=== PATIENT | male | born 1970 ===

== ENCOUNTER 2020-07-10 13:14 | Outpatient (REF) | payer OTHER, SELFPAY ==
[2020-07-10 15:11] LABS: Glucose Urine UA NEG (NEG); Leukocyte Esterase Urine NEG (NEG); Nitrite Urine NEG (NEG); PH 7.5 (5.0-8.0); Urine Blood TRACE (NEG); Urine Ketones NEG (NEG); Urine Protein NEG (NEG-TRACE)
[2020-07-10 15:12] LABS: Appearance Urine CLEAR; Color Urine YELLOW
[2020-07-10 15:22] LABS: Bacteria Urine 1+ /LPF; RBC Urine 0-2 /HPF (0); WBC Urine 0 /HPF (0-4)
== END 2020-07-10 13:15 | disposition home or self-care (01) ==
LOC: HO.LAB 13:14
PROVIDERS: PCP Internal Medicine; Visit Provider Internal Medicine
DX: R35.0 Frequency of micturition (principal)
CPT/HCPCS: 81001; 81003

== ENCOUNTER 2020-09-11 18:17 | Emergency (ER) | payer OTHER, SELFPAY ==
[2020-09-11 18:50] VITALS: BP 121/82; PULSE 67; RESP 18; TEMP 36.7; O2SAT 98; BMI 27.3
[2020-09-11] MEDS: hydrOXYzine HCL 25 MG TABLET PO (20:46)
[2020-09-11] MEDS: predniSONE 20 MG TABLET 40 MG PO (20:46)
--- NOTE | 2020-09-11 23:56 | ED_ITS ---
HPI - General Adult General Chief complaint: General Medical Stated complaint: rash Time Seen by Provider: 09/11/20 19:15 Source: patient Limitations: no limitations History of Present Illness HPI narrative: this is a 49-year-old male who complains of a pruritic rash that he has had on his forearms bilaterally for about 3 weeks. He has few patches of raised erythematous skin that he attributed to poison rosa. He has been at applying calamine lotion as well as hydrocortisone cream without relief. Today he noted some itchy red areas in his right groin and left lower abdomen. He denies taking any medicines by mouth. He denies any tongue or lip or throat symptoms, denies shortness of breath. Related Data Previous Rx's Medication Instructions Recorded hydroxyzine HCl 25 - 50 mg PO QID PRN #30 tab 09/11/20 prednisone 40 mg PO DAILY 5 Days #10 tab 09/11/20 Allergies Allergy/AdvReac Type Severity Reaction Status Date / Time No Known Allergies Allergy Verified 09/11/20 18:50 Review of Systems Review of Systems: Yes all other systems are reviewed and are negative Constitutional: Constitutional: Reports as per HPI and Denies fever(s) Eyes: Eyes: Reports as per HPI and Reports no additional eye complaints ENT: Reports system reviewed and no additional complaints, except as documented, Reports as per HPI, Denies nasal congestion, Denies nasal discharge and Denies sore throat Cardiovascular: Cardiovascular: Reports as per HPI, Denies chest pain and Denies dyspnea Respiratory: Respiratory: Reports as per HPI, Denies cough and Denies dyspnea Gastrointestinal: Gastrointestinal: Reports as per HPI, Denies abdominal pain, Denies diarrhea and Denies vomiting Genitourinary: Genitourinary: Reports as per HPI, Denies hematuria, Denies dysuria and Denies urinary frequency Musculoskeletal: Musculoskeletal: Reports no additional musculoskeletal complaints and Denies numbness Integumentary/Breasts: Skin/Breast: Reports as per HPI and Reports rash Comments: Pruritus Neurologic: Reports as per HPI, Denies focal weakness, Denies numbness and Denies Sensory deficit (Neuro) Psychiatric: Psychiatric: Reports no additional psychiatric complaints and Reports as per HPI Endocrine: Endocrine: Reports no additional endocrine complaints and Reports as per HPI Hematologic/Lymphatic: Hematologic/Lymphatic: Reports no additional hematologic/lymphatic complaints, Reports as per HPI and Reports other (No peripheral edema) FOR[facility]LY [facility], [facility] Past Medical History Surgical History History of appendectomy Family History Family History (Updated 07/22/20 @ 11:06 by LUIS Ivey) Mother No problems noted. Social History Social History (Updated 07/22/20 @ 11:07 by LUIS Ivey) Alcohol intake: never Advance Directives: No Advance Directives Information Provided: No Physical Exam Vital Signs: Vital Signs: Last Vital Signs Temp 98.0 F 09/11/20 18:50 Pulse 67 09/11/20 18:50 Resp 18 09/11/20 18:50 BP 121/82 09/11/20 18:50 Pulse Ox 98 09/11/20 18:50 Body Mass Index 27.3 Const: General: cooperative, no acute distress and alert Orientation/consciousness: patient oriented x3 HENMT: Head: Yes normal to inspection Eyes: General: appearance normal, both eyes and all related structures Eyelids: Yes eyelids normal Conjunctivae: conjunctivae normal Pupils: Equal, round and reactive pupils present Neck: Neck: Yes normal visual inspection and Yes supple Chest: Chest palpation & inspection: normal inspection of the chest Resp: Effort & Inspection: normal respiratory effort Auscultation: clear to auscultation bilaterally Cardio: Rate: regular rate Rhythm: regular rhythm Heart sounds: S1 normal heart sound present, S2 normal heart sound present, no gallops, no murmurs and no rubs GI: Palpation (GI): Soft to palpation, nontender and Other GI palpation findings present (Non-distended) Auscultation: normal bowel sounds Skin: Other: raised erythematous area to volar wrist area, with a few satellite lesions nearby. Appearance is consistent with resolving contact dermatitis. Similar lesions on the patient's left wrist. Right groin and lower abdomen has few areas of patchy macular erythema. No generalized urticaria or erythroderma Neuro: General: patient oriented x3, no focal motor deficits and CN's II-XI intact bilaterally Cranial nerves: Yes Equal, round and reactive pupils present Cognition (Neuro): normal cognition Motor exam (neuro): 5/5 motor strength present throughout Sensory Exam: No Sensory deficit (Neuro) Extrem: General: Yes normal to inspection and Yes no pedal edema Psych: Appearance: grossly normal Affect: normal affect Medical Decision Making MDM Narrative Medical decision making narrative: will treat the patient with prednisone and hydroxyzine, to cover possible lingering contact dermatitis as well as nonspecific pruritic rash. Patient's overall well appearing and does not have any generalized rash Discharge Plan Discharge Clinical Impression: Contact dermatitis, Urticaria Patient Disposition: Home, Self-Care Instructions: Contact Dermatitis (ED), Urticaria (ED) Additional Instructions: take medications as prescribed. Make sure all of her clothes are washed with detergent to remove any remnants of poison rosa or other plant proteins. Return for any new or worsened symptoms Prescriptions: New prednisone 20 mg tablet 40 mg PO DAILY 5 Days Qty: 10 RF: 0 hydroxyzine HCl 25 mg tablet 25 - 50 mg PO QID PRN (Reason: itching) Qty: 30 RF: 0 Interventions: ED Discharge Assessment Last Done: 09/11/20 21:02 Discharge Date/Time: 09/11/20 21:03
== END 2020-09-11 21:03 | disposition home or self-care (01) ==
PROVIDERS: Emergency Provider Emergency Medicine
DX: L25.9 Unspecified contact dermatitis, unspecified cause (principal); L50.9 Urticaria, unspecified
CPT/HCPCS: 99283

== ENCOUNTER 2022-08-01 10:05 | Outpatient (REF) | payer OTHER, SELFPAY ==
--- NOTE | ~2022-08-01 | XR_ITS ---
EXAMINATION: XR LUMBOSACRAL SPINE CLINICAL INFORMATION: Low back pain. COMPARISON: None available. TECHNIQUE: Three views of the lumbosacral spine. FINDINGS: There are 5 lumbar-type nonrib-bearing vertebrae. Minimal leftward curvature of the lumbar spine is noted. Intervertebral disc spaces are preserved except for probable mild narrowing of the L5-S1 disc space. Minimal anterior endplate hypertrophic spurring is noted at L4-L5. No suspicious lytic or blastic osseous lesions. The posterior elements appear intact. Mild facet arthropathy at L5-S1. Limited evaluation of the sacroiliac joints and visualized hip joints is unremarkable. Paraspinous soft tissues are unremarkable. XR/XR lumbar spine 2-3V IMPRESSION: No evidence of acute compression fracture or suspicious osseous lesion. Mild lower lumbar spondylosis, greater at L5-S1.
== END 2022-08-01 10:06 | disposition home or self-care (01) ==
LOC: HO.XRAY 10:05
PROVIDERS: PCP Internal Medicine; Visit Provider Internal Medicine
DX: M54.9 Dorsalgia, unspecified (principal)
CPT/HCPCS: 72100

== ENCOUNTER 2022-08-12 12:56 | Outpatient (REF) | payer OTHER, SELFPAY ==
--- NOTE | ~2022-08-12 | US_ITS ---
EXAMINATION: US RETROPERITONEAL LIMITED (RENAL ONLY) CLINICAL INFORMATION: Flank pain. COMPARISON: None available. TECHNIQUE: Real-time imaging of the kidneys. FINDINGS: RIGHT KIDNEY: 10.8 x 4.9 x 5.6 cm (SAG x AP x TRV). The kidney is normal in size, contour, and echogenicity. Renal cortical thickness is normal. No calculi or focal parenchymal lesions. No hydronephrosis. LEFT KIDNEY: 12.2 x 5.4 x 5.0 cm (SAG x AP x TRV). The kidney is normal in size, contour, and echogenicity. Renal cortical thickness is normal. No calculi or focal parenchymal lesions. No hydronephrosis. US/US renal BI IMPRESSION: Unremarkable renal ultrasound.
== END 2022-08-12 12:57 | disposition home or self-care (01) ==
LOC: HO.US 12:56
PROVIDERS: PCP Internal Medicine; Visit Provider Internal Medicine
DX: R10.9 Unspecified abdominal pain (principal)
CPT/HCPCS: 76775

== ENCOUNTER 2022-09-16 10:43 | Outpatient (AMB) | payer OTHER, SELFPAY ==
--- NOTE | 2022-09-16 11:10 | A.OFFVIS_ITS ---
Intake Intake Visit Reasons: Renal Cyst Intake Note: Patient presents for Renal Cyst Urology Medications: none Blood thinners: none Multiple Spindle Screw Machine Operator Required: Yes Multiple Spindle Screw Machine Operator Name: TIFFANY Information Interpreted: clinical only Accompanied by: Unknown Allergies No Known Allergies Allergy (Verified 09/17/22 19:35) Medication List - Last Reconciled 09/17/22 by MARISABEL Escobar No Known Home Meds HPI HPI Comments History of Present Illness Details Travis is a pleasant 51-year-old Urdu-speaking male patient of Dr. Valdez. He presents to the office today as a new patient for a longstanding history of pyelonephritis. Patient reports over 3 years ago experiencing pyelonephritis for the first time and then again approximately 1 1/2 ago. He cu rrently denies any issues or concerns however discusses he would like to establish care with Urology for preventative measures. He discusses approximately 1-2 months ago experiencing bilateral flank/back pain that radiated to his abdomen and was worried that it could have been pyelonephritis. He reports pain has since subsided. In review of patient's chart it appears renal imaging has been ordered and obtain. These results were reviewed with the patient today. Bilateral kidneys with no calculi, lesions, and or hydronephrosis noted. Unremarkable renal ultrasound. In office urinalysis resu lts reviewed with the patient today. In discussion with the patient today he reports to be drinking pre workout drinks daily as he exercises daily at the gym. When asked he denies urinary urgency, urinary frequency, incontinence, nocturia, hematuria, dysuria, foul smelling urine, changes to urinary stream, flank pain, fever, and or chills. He is happy with his current voiding parameters. Discussed obtaining PSA for further assessment evaluation. UZAIR offered however deferred/declined. [facility]LY [facility], LAT[facility] Surgical History History of appendectomy Family History Mother No problems noted. Social History Housing: House Alcohol intake: never Patient Tobacco Use Status: Never used Tobacco e-Cigarette/Vaping Use: Never Used service: No Current occupational status: employed Review of Systems Const All systems reviewed & are unremarkable except as noted in HPI and below Reports no additional complaints Eyes Reports no additional complaints ENT Reports no additional complaints Card Reports no additional complaints Resp Reports no additional complaints GI Reports no additional complaints Reports as per HPI Musc Reports no additional complaints Neuro Reports no additional complaints Psych Reports no additional complaints Endo Reports no additional complaints Adolfo/Lymph Reports no additional complaints Aller/Immun Reports no additional complaints Physical Exam Const General: cooperative, healthy appearing, comfortable, no acute distress, well developed, alert and awake Orientation/consciousness: patient oriented x3 Limitations: no limitations HEENT Head: Yes normal to inspection, Yes normocephalic and Yes atraumatic Ears: hearing grossly normal bilaterally Eyes General: appearance normal, both eyes and all related structures Neck Neck: Yes normal visual inspection and Yes trachea midline Chest Chest palpation & inspection: normal inspection of the chest Resp Effort & Inspection: normal respiratory effort and able to speak in complete sentences Cardio Rate: regular rate GI Inspection: Yes normal to inspection General: Yes no CVA tenderness Back/Spine/Pelvis Back: no CVA tenderness Skin General skin exam: no rashes or lesions noted Neuro General: patient oriented x3 Extrem General: Yes normal to inspection Psych Appearance: grossly normal and well kempt Mental Status: mental status grossly normal Speech and movement: Normal speech and movement present and Clear speech present Affect: normal affect Attitude: cooperative Thought process: Normal thought process present Thought content: Normal thought content present Insight: Good insight present (Psych) Judgement: Good judgement present (Psych) Results AMB Urinalysis, Automated UA Leukoctes 0 Ceasar/uL Last Edit by [employer] on 09/16/22 11:32 UA Nitrite Negative Last Edit by [employer] on 09/16/22 11:32 UA Urobilinogen 0.2 mg/dL Last Edit by [employer] on 09/16/22 11:32 UA Protein 0 mg/dL Last Edit by [employer] on 09/16/22 11:32 UA pH 6.0 Last Edit by [employer] on 09/16/22 11:32 UA Blood 0 Antony/uL Last Edit by [employer] on 09/16/22 11:32 UA Specific [place] 1.025 Last Edit by [employer] on 09/16/22 11:32 UA Ketone Negative Last Edit by [employer] on 09/16/22 11:32 UA Bilirubin 0 mg/dL Last Edit by Dragan James on 09/16/22 11:32 UA Glucose 0 mg/dL Last Edit by Dragan James on 09/16/22 11:32 Results Reviewed Results Reviewed: Laboratory Last Values Urine pH (Auto) 6.0 09/16/22 11:27 Specific [place] (Auto) 1.025 09/16/22 11:27 Urine Protein (Auto) 0 mg/dL 09/16/22 11:27 Glucose (UA)(Auto) 0 mg/dL 09/16/22 11:27 Urine Ketones (Auto) Negative 09/16/22 11:27 Urine Blood (Auto) 0 Antony/uL 09/16/22 11:27 Urine Nitrite (Auto) Negative 09/16/22 11:27 Urine Bilirubin (Auto) 0 mg/dL 09/16/22 11:27 Urine Urobilinogen (Auto) 0.2 mg/dL 09/16/22 11:27 Leukocyte Esterase (Auto) 0 Ceasar/uL 09/16/22 11:27 Date of Service: 08/12/22 EXAMINATION: US RETROPERITONEAL LIMITED (RENAL ONLY) FINDINGS: RIGHT KIDNEY: 10.8 x 4.9 x 5.6 cm (SAG x AP x TRV). The kidney is normal in size, contour, and echogenicity. Renal cortical thickness is normal. No calculi or focal parenchymal lesions. No hydronephrosis. LEFT KIDNEY: 12.2 x 5.4 x 5.0 cm (SAG x AP x TRV). The kidney is normal in size, contour, and echogenicity. Renal cortical thickness is normal. No calculi or focal parenchymal lesions. No hydronephrosis. US/US renal BI IMPRESSION: Unremarkable renal ultrasound. Assessment & Plan Assessment & Plan (1) History of pyelonephritis: Code(s): Z87.448 - Personal history of other diseases of urinary system Plan In office urinalysis results reviewed with the patient today. Patient denies any urological issues or concerns at this time. Recent renal imaging results reviewed with the patient and his significant other today; as noted above. Will obtain PSA for further assessment evaluation. Discussed at length affects of pre workout due to increased amounts of caffeine PSA ordred Follow-up in 2 weeks with lab to be completed prior; or sooner with any issues, concerns, and or questions. Orders: Orders Prostate Specific Antigen Today N40.0 - Benign prostatic hyperplasia without lower urinary tract symptoms AMB Urinalysis Automated 09/16/22 Z13.9 - Encounter for screening, unspecified Patient Instructions: The patient had an opportunity to ask questions regarding the treatment plan. All questions were answered. Physical exam, labs, and imaging were discussed and reviewed in detail. As well as risks, benefits, and discussion of treatment choices. No major barriers to understanding were identified. The patient expressed understanding and agreement with the above treatment plan. The patient was made aware they should contact our office by phone for worsening of their current condition, the appearance of new symptoms, or with any q uestions or concerns. Compliance is encouraged with any medications and follow up testing that is ordered. It is a privilege to be allowed the opportunity to participate in? your urological care.? Again, if you have any questions or concerns If you have any questions or concerns please do not hesitate to contact me. The office is [phone]. This note is constructed using voice recognition software. While every effort has been made to ensure accuracy pattern chart writer errors may have been included. Yours sincerely, MARISABEL Escobar Coding Level of Care Code New Pt Level 3 (07794) Diagnoses History of pyelonephritis Z87.448
== END 2022-09-16 12:11 | disposition home or self-care (01) ==
PROVIDERS: PCP Internal Medicine; Visit Provider Nurse Practitioner Family
DX: Z87.448 Personal history of other diseases of urinary system (principal)
CPT/HCPCS: 99203

== ENCOUNTER → 2022-09-16 10:43 | Outpatient (BNVA) | payer OTHER, SELFPAY | PROVIDERS: PCP Internal Medicine; Visit Provider Nurse Practitioner Family | DX: Z87.448 Personal history of other diseases of urinary system (principal) | CPT/HCPCS: 99202 ==

== ENCOUNTER 2022-09-17 09:22 | Outpatient (REF) | payer OTHER, SELFPAY ==
[2022-09-17 11:04] LABS: Prostate Specific Antigen 0.46 ng/mL (<0.05-4.0)
== END 2022-09-17 09:23 | disposition home or self-care (01) ==
LOC: HO.LAB 09:22
PROVIDERS: PCP Internal Medicine; Visit Provider Nurse Practitioner Family
DX: Z12.5 Encounter for screening for malignant neoplasm of prostate (principal); N40.0 Benign prostatic hyperplasia without lower urinary tract symptoms
CPT/HCPCS: 36415; 84153

== ENCOUNTER 2022-10-02 09:57 | Outpatient (AMB) | payer OTHER, SELFPAY ==
--- NOTE | 2022-10-02 10:10 | A.OFFVIS_ITS ---
Intake Intake Visit Reasons: 2w/labs Intake Note: Patient presents for follow up psa labs (psa 0.46) Urology Medications: none Blood thinners: none Elementary Instructional Coach Required: Yes Elementary Instructional Coach Name: Candida Accompanied by: Spouse Allergies No Known Allergies Allergy (Verified 10/07/22 07:07) Medication List - Last Reconciled 10/07/22 by MARISABEL Escobar No Known Home Meds HPI HPI Comments History of Present Illness Details Travis is a pleasant 51-year-old Montenegrin-speaking male patient of Dr. Valdez. He presents to the office today for follow-up. Of note, patient was se en approximately 2 weeks ago as a new patient for a longstanding history of pyelonephritis at which time recent renal imaging results were reviewed with the patient and noted to be within normal limits. However, in discussion with the patient he denied previous PSA or prostate exam to have been completed and or performed. Thus, a PSA was ordered for further assessment evaluation and patient was offered UZAIR however patient deferred. PSA 09/27-- 0.5. When asked he denies urinary urgency, urinary frequency, incontinence, nocturia, hematuria, dysuria, foul smelling urine, changes to urinary stream, flank pain, fever, and or chills. He is happy with his current voiding parameters. In office urinalysis results reviewed with the patient today. [facility] Surgical History History of appendectomy Family History Mother No problems noted. Social History Housing: House Alcohol intake: never Patient Tobacco Use Status: Never used Tobacco e-Cigarette/Vaping Use: Never Used service: No Current occupational status: employed Review of Systems Const All systems reviewed & are unremarkable except as noted in HPI and below Reports no additional complaints Eyes Reports no additional complaints ENT Reports no additional complaints Card Reports no additional complaints Resp Reports no additional complaints GI Reports no additional complaints Reports as per HPI Musc Reports no additional complaints Neuro Reports no additional complaints Psych Reports no additional complaints Endo Reports no additional complaints Adolfo/Lymph Reports no additional complaints Aller/Immun Reports no additional complaints Physical Exam Const General: cooperative, healthy appearing, comfortable, no acute distress, well developed, alert and awake Orientation/consciousness: patient oriented x3 Limitations: no limitations HEENT Head: Yes normal to inspection, Yes normocephalic and Yes atraumatic Ears: hearing grossly normal bilaterally Eyes General: appearance normal, both eyes and all related structures Neck Neck: Yes normal visual inspection and Yes trachea midline Chest Chest palpation & inspection: normal inspection of the chest Resp Effort & Inspection: normal respiratory effort and able to speak in complete sentences Cardio Rate: regular rate GI Inspection: Yes normal to inspection General: Yes no CVA tenderness Back/Spine/Pelvis Back: no CVA tenderness Skin General skin exam: no rashes or lesions noted Neuro General: patient oriented x3 Extrem General: Yes normal to inspection Psych Appearance: grossly normal and well kempt Mental Status: mental status grossly normal Speech and movement: Normal speech and movement present and Clear speech present Affect: normal affect Attitude: cooperative Thought process: Normal thought process present Thought content: Normal thought content present Insight: Good insight present (Psych) Judgement: Good judgement present (Psych) Results AMB Urinalysis, Automated UA Leukoctes 0 Ceasar/uL Last Edit by [employer] on 10/02/22 10:29 UA Nitrite Last Edit by [employer] on 10/02/22 10:29 UA Urobilinogen 0.2 mg/dL Last Edit by [employer] on 10/02/22 10:29 UA Protein 0 mg/dL Last Edit by [employer] on 10/02/22 10:29 UA pH 5.5 Last Edit by [employer] on 10/02/22 10:29 UA Blood 0 Antony/uL Last Edit by [employer] on 10/02/22 10:29 UA Specific [place] 1.030 Last Edit by [employer] on 10/02/22 10:29 UA Ketone Last Edit by [employer] on 10/02/22 10:29 UA Bilirubin 0 mg/dL Last Edit by [employer] on 10/02/22 10:29 UA Glucose 0 mg/dL Last Edit by [employer] on 10/02/22 10:29 Results Reviewed Results Reviewed: Laboratory Last Values Urine pH (Auto) 5.5 10/02/22 10:18 Specific [place] (Auto) 1.030 10/02/22 10:18 Urine Protein (Auto) 0 mg/dL 10/02/22 10:18 Glucose (UA)(Auto) 0 mg/dL 10/02/22 10:18 Urine Blood (Auto) 0 Antony/uL 10/02/22 10:18 Urine Bilirubin (Auto) 0 mg/dL 10/02/22 10:18 Urine Urobilinogen (Auto) 0.2 mg/dL 10/02/22 10:18 Leukocyte Esterase (Auto) 0 Ceasar/uL 10/02/22 10:18 Assessment & Plan Assessment & Plan (1) History of pyelonephritis: Code(s): Z87.448 - Personal history of other diseases of urinary system Plan In office urinalysis results reviewed with the patient today; as noted above Recent PSA results reviewed with the patient today; as noted above Patient denies any urinary issues or concerns at this time. He is happy with his current voiding parameters. Will obtain retroperitoneal ultrasound in 1 year for surveillance monitoring of longstanding history of pyelonephritis Discussed, educated, and instructed on the importance of limiting pre workout due to increase amounts of caffeine. Follow-up in 1 year with imaging to be completed prior; or sooner with any issues, concerns, and or questions. Orders: Orders US renal BI 364 Days N20.0 - Calculus of kidney AMB Urinalysis Automated 10/02/22 Z13.9 - Encounter for screening, unspecified Patient Instructions: The patient had an opportunity to ask questions regarding the treatment plan. All questions were answered. Physical exam, labs, and imaging were discussed and reviewed in detail. As well as risks, benefits, and discussion of treatment choices. No major barriers to understanding were identified. The patient expressed understanding and agreement with the above treatment plan. The patient was made aware they should contact our office by phone for worsening of their current condition, the appearance of new symptoms, or with any question s or concerns. Compliance is encouraged with any medications and follow up testing that is ordered. It is a privilege to be allowed the opportunity to participate in? your urological care.? Again, if you have any questions or concerns If you have any questions or concerns please do not hesitate to contact me. The office is [phone]. This note is constructed using voice recognition software. While every effort has been made to ensure accuracy exhibit designer errors may have been included. Yours sincerely, MARISABEL Escobar Coding Level of Care Code Est Pt Level 3 (84348) Diagnoses History of pyelonephritis Z87.448
== END 2022-10-02 10:47 | disposition home or self-care (01) ==
PROVIDERS: PCP Internal Medicine; Visit Provider Nurse Practitioner Family
DX: Z87.448 Personal history of other diseases of urinary system (principal)
CPT/HCPCS: 99213

== ENCOUNTER → 2022-10-02 09:57 | Outpatient (BNVA) | payer OTHER, SELFPAY | PROVIDERS: PCP Internal Medicine; Visit Provider Nurse Practitioner Family | DX: Z87.448 Personal history of other diseases of urinary system (principal) | CPT/HCPCS: 99212 ==

== ENCOUNTER 2022-12-04 16:59 | Emergency (ER) | payer OTHER, SELFPAY ==
--- NOTE | ~2022-12-04 | US_ITS ---
EXAMINATION: US left groin CLINICAL INFORMATION: Hernia COMPARISON: None available at the time of this dictation. TECHNIQUE: High-frequency linear transducer ultrasound utilized, area of interest scanned, left groin region FINDINGS: There is a defect in the abdominal wall left groin region through which echogenic material is herniated compatible with inguinal hernia the neck of which is about 1.8 cm. US/US pelvic limited IMPRESSION: Ultrasound confirm left inguinal hernia. Cross-sectional imaging CT scan or MRI could be utilized for better characterization if clinically indicated.
[2022-12-04 17:08] VITALS: BP 137/77; PULSE 74; RESP 16; TEMP 36.3; O2SAT 97; BMI 28.4
--- NOTE | 2022-12-04 17:09 | ED_ITS ---
HPI - General Adult General Chief complaint: General Medical Stated complaint: ?Hernia Time Seen by Provider: 12/04/22 17:50 Source: patient Mode of arrival: ambulatory Limitations: no limitations History of Present Illness HPI narrative: This is a 52-year-old male presenting to the emergency department with left- sided groin pain x2 weeks, intermittent in nature, patient reports he feels a bulge in his left groin area when he is heavy lifting, he reports he 1st noticed it 2 weeks ago after lifting 270 lb at the gym he does this regularly. Patient reports pain is worse with lifting, he tells me at rest he can not really feel the pain. He just feels a bulge intermittently which she can push back in. He denies testicular pain but at times he feels like the bulge goes into his testicles. Denies fevers, chills, nausea, vomiting, testicular pain, chest pain, shortness of breath Related Data Previous Rx's Medication Instructions Recorded naproxen 500 mg tablet 500 mg PO BID PRN pain #14 tabs 12/04/22 Allergies Allergy/AdvReac Type Severity Reaction Status Date / Time No Known Allergies Allergy Verified 10/07/22 07:07 Review of Systems Review of Systems: Constitutional : No Weight loss, No Fever, No Chills, No Fatigue, No Malaise ENT/Mouth : No sore throat, No Rhinorrhea Eyes: No Eye Pain, No Swelling, No Redness Cardiovascular : No Chest Pain, No SOB, No Dyspnea on Exertion, No Orthopnea, No Edema, No Palpitations Respiratory : No Cough, No Sputum, No Wheezing Gastrointestinal : No Nausea, No Vomiting, No Diarrhea, No Constipation, No abdominal Pain, No Hematochezia, No Melena Genitourinary : No Dysuria, No Urinary Frequency, No Hematuria, Musculoskeletal : No joint pain, No Myalgias, No Joint Swelling, + groin pain Skin : No Skin Lesions, No rash Neuro : No Weakness, No Numbness, No Dizziness, No Headache Psych : No Anxiety/Panic, No Depression All other systems reviewed and are negative Yes all other systems are reviewed and are negative [facility] Past Medical History Attestation statement: The following information was validated with the patient. Source: old records reviewed and nursing notes reviewed Surgical History History of appendectomy Family History Family History Mother No problems noted. Social History Social History Housing: House Alcohol intake: never Patient Tobacco Use Status: Never used Tobacco e-Cigarette/Vaping Use: Never Used Advance Directives: No Advance Directives Information Provided: Yes service: No Current occupational status: employed Physical Exam ED Vital Signs: Vital Signs - 24 hr 12/04/22 17:08 Temperature 97.4 F Pulse Rate 74 Respiratory Rate 16 Blood Pressure 137/77 Pulse Oximetry 97 Oxygen Delivery Method Room Air BMI result Body Mass Index 28.4 vss Appearance: Alert.? Oriented X3.? No acute distress.? Head: Normocephalic, atraumatic, no step-offs or deformities Eyes: Pupils equal, round and reactive to light.? CVS: Normal heart rate and rhythm.? Pulses normal.? Respiratory: No respiratory distress.? Breath sounds normal.? Abdomen: Soft and nontender.? Skin: Skin warm and dry.? Normal skin color.? Normal skin turgor.? Extremities: No lower extremity edema.? No calf ttp. 5/5 strength to bilateral upper and lower extremities Sensitive exam: There is a direct inguinal left hernia upon it exam a, normal testicles and epididymis bilaterally, no overlying skin changes. 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 No motor deficit.? No sensory deficit. CN 2-12 intact Course Course Course Narrative: This is an RME: Additional HPI, ROS, PE not included below will be deferred to primary provider. Patient is a 52-year-old male who presents to the emergency department for evaluation of left groin lump, noted after exercising 1.5 week ago. He did not seek initial evaluation as he has been moving and did not have the time. The lump has previously been soft endorses that it is much firmer today with increased pain. Has been able to urinate normally, no urinary symptoms, is able to move his bowels but avoids straining as this exacerbates the pain. Plan: US Reevaluation(s) Reevaluation #1: Ultrasound confirming left inguinal hernia, advised not to heavy lifting to follow-up with general surgery. Will send naproxen for discomfort. Educated patient on diagnosis and treatment plan, answered all question, patient verbalizes understanding. At this time patient will be discharged home, advised to return with new or worsening symptoms. Educated on worrisome signs and symptoms and when to return. At this time I feel comfortable discharge home. Time: 18:20 Medical Decision Making Medical Decision Making MDM Narrative: 52-year-old male presents with atraumatic left-sided groin pain worse with heavy lifting On exam There is a direct inguinal left hernia upon it exam a, normal testicles and epididymis bilaterally, no overlying skin changes. 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 No signs of cellulitis overlying. History and physical exam were not concerning for testicular torsion, epididymitis, orchitis or UTI. Ultrasound ordered from triage Differential Diagnosis Differential Diagnoses: The differential diagnosis associated with the presentation includes History and physical exam concerning for a direct inguinal hernia, not noted to be strangulated or incarcerated. No signs of cellulitis overlying. History and physical exam were not concerning for testicular torsion, epididymitis, orchitis or UTI. Admission/Observation Consideration of admission/observation: Escalation of care including admission/observation considered No indication Independent Interpretation I performed an independent interpretation of an: Ultrasound (US/US pelvic limited IMPRESSION: Ultrasound confirm left inguinal hernia. Cross- sectional imaging CT scan or MRI could be utilized for better characterization if clinically indicated. ) Radiology Impression Discussion of test interpretation with radiology: I have reviewed the radiologist's reading. Tests considered The following testing was considered but not selected: History and physical exam not consistent with strangulation/incarceration, no need for CT or MRI Discharge Plan Discharge Clinical Impression: Hernia, inguinal, left Patient Disposition: Home, Self-Care Instructions: Inguinal Hernia (ED) Additional Instructions: Take your medications as prescribed. If you were prescribed antibiotics today, it is important that you take your medication to their entirety, do not skip any doses, do not finish them early. Follow-up with your primary care provider this week. Follow-up with general surgery. Return to the emergency department with new or worsening symptoms. Such as fevers, chills, chest pain, shortness of breath, nausea, vomiting, dizziness, headache, vision changes, lethargy In case of emergency call 911 US/US pelvic limited IMPRESSION: Ultrasound confirm left inguinal hernia. Cross-sectional imaging CT scan or MRI could be utilized for better characterization if clinically indicated. Prescriptions: New naproxen 500 mg tablet 500 mg PO BID PRN (Reason: pain) Qty: 14 0RF Rx Instructions: Take with food Referrals: [facility] [place] [facility] [Provider Group] - 1 week Chance Valdez MD [Primary Care Provider] - 2 days
== END 2022-12-04 18:24 | disposition home or self-care (01) ==
PROVIDERS: Emergency Provider Emergency Medicine; PCP Internal Medicine
DX: K40.90 Unilateral inguinal hernia, without obstruction or gangrene, not specified as recurrent (principal); R10.32 Left lower quadrant pain
CPT/HCPCS: 76857; 99282; 99284

== ENCOUNTER 2022-12-07 14:46 | Outpatient (AMB) | payer OTHER, SELFPAY ==
[2022-12-07 14:46] VITALS: BP 122/74; PULSE 71; BMI 28.4
--- NOTE | 2022-12-07 14:46 | A.OFFVIS_ITS ---
Intake Vital Signs 12/07/22 14:46 Height 5 ft 8 in Weight 186 lb 11.704 oz BMI 28.4 BP 122/74 Blood Pressure Location Rt brachial Position Sitting Pulse 71 Intake Visit Reasons: left inguinal hernia Intake Note: This patient presents for [facility] [place] emergency department follow-up for left inguinal hernia. Patient c/o; left groin, reports pain and discomfort. 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 He went to the ER last 12/04/2022 because of left groin pain. He says that this started about weeks prior to his ER visit. He says that he would notice this pain with exertion. He says that he would also see a reducible mass on the left groin. In the ER, he was diagnosed to have a left groin hernia. He also had an ultrasound of the groin showing this hernia . He was therefore referred to me. COUNT INCLUDES THE [facility] Surgical History History of appendectomy Family History Mother No problems noted. Social History Housing: House Alcohol intake: never Patient Tobacco Use Status: Never used Tobacco e-Cigarette/Vaping Use: Never Used service: No Current occupational status: employed Review of Systems Const Denies chills and Denies fever(s) Card Denies chest pain, Denies dyspnea and Denies dyspnea on exertion Resp Denies cough, Denies dyspnea and Denies dyspnea on exertion GI Denies hematochezia and Denies change in bowel habits Denies hematuria and Denies difficulty urinating Musc Denies back pain and Denies limited range of motion Neuro Denies focal weakness and Denies convulsions Psych Denies depression and Denies mood swings Physical Exam Vital Signs: Last Vital Signs Pulse 71 12/07/22 14:46 BP 122/74 12/07/22 14:46 BMI result Body Mass Index 28.4 Const General: comfortable and no acute distress Orientation/consciousness: patient oriented x3 Neck Neck: Yes no lymphadenopathy Resp Auscultation: clear to auscultation bilaterally Cardio Rhythm: regular rhythm GI Other: Reducible left inguinal hernia, nontender Palpation (GI): Soft to palpation, nontender and no guarding Neuro General: patient oriented x3 Assessment & Plan Assessment & Plan (1) Hernia, inguinal, left: Code(s): K40.90 - Unilateral inguinal hernia, without obstruction or gangrene, not specified as recurrent Plan: He has a reducible hernia on the left groin as above. I explained him the technique of repair of the left inguinal hernia with mesh. I reviewed the risks including but not limited to bleeding, infections, injury to, vas deferens and testicle, recurrence, postop pain, as well as the benefits and alternatives. He understands and wants to proceed. He also understands what to expect postoperatively especially with regards to care. Coding Level of Care Code New Pt Level 3 (24109) Diagnoses Hernia, inguinal, left K40.90
== END 2022-12-07 15:06 | disposition home or self-care (01) ==
PROVIDERS: PCP Internal Medicine; Visit Provider Surgery
DX: K40.90 Unilateral inguinal hernia, without obstruction or gangrene, not specified as recurrent (principal)
CPT/HCPCS: 99203

== ENCOUNTER → 2022-12-07 14:46 | Outpatient (BNVA) | payer OTHER, SELFPAY | PROVIDERS: PCP Internal Medicine; Visit Provider Surgery ==

== ENCOUNTER 2022-12-22 08:46 | Day surgery (SDC) | payer OTHER, SELFPAY ==
[2022-12-18 09:48] VITALS: BMI 28.4
[2022-12-22] VITALS (17 sets, daily range): BP systolic 88–122; BP diastolic 49–71; PULSE 52–77; RESP 12–20; TEMP 36.2–36.8; O2SAT 96–100
[2022-12-22] MEDS: Lactated Ringers 1,000 ML 100 ML IVCONT (09:34)
--- NOTE | 2022-12-22 10:22 | MHC.SHP ---
Pre-Procedural Eval Section A Date of Service: 12/22/22 The patient is an INPATIENT: No Changes since office visit: No Cold of Flu in the past 2 weeks, No New Medical Problems, No Changes in Medication and No Patient answered all questions The History & Physical has been completed within 30 days and I have reviewed it.: Yes Section B Chief Complaint: Unilateral inguinal hernia, without obstruction or Allergies: Allergies Allergy/AdvReac Type Severity Reaction Status Date / Time No Known Allergies Allergy Verified 12/07/22 15:02 Plan I have reviewed the history and physical and performed a pertinent physical examination on my patient. No changes have occurred unless specified. Time Spent With Patient Time: Total time managing care of this patient today ____ minutes.
--- NOTE | 2022-12-22 10:45 | HO.ANESPROP2 ---
Documented by User: Tarsha Williamson NP 12/21/22 09:39 HPI - Anesthesia Eval Consult details Narrative: 52yo M for Left Open Hernia Repair Inguinal w/mesh PMFSH Active Problems Active Problems: All Active Problems (Updated 12/18/22 @ 09:48 by Cici Nolasco RN) History of pyelonephritis (Acute) UTI (urinary tract infection) (Acute) Past Medical History Medical History Contact dermatitis Family History Family History Mother No problems noted. Surgical History Surgical History History of appendectomy Social History Social History Housing: House Alcohol intake: never Patient Tobacco Use Status: Never used Tobacco e-Cigarette/Vaping Use: Never Used Are you DNR?: No Advance Directives: No Advance Directives Information Provided: Yes Nutrition Risks: No Nutritional Risk service: No Current occupational status: employed Meds Allergies Allergy/AdvReac Type Severity Reaction Status Date / Time No Known Allergies Allergy Verified 12/07/22 15:02 Exam Exam Date and Time: December 21, 2022 0939 Height,Weight and Vital Signs: Height 5 ft 8 in Weight 84.822 kg Assessment and Plan Assessment Anesthesia Assessment: Chart Reviewed Documented by User: Jeanette Dean DO 12/22/22 10:47 PMFSH Past Medical History Medical History Contact dermatitis Family History Family History Mother No problems noted. Family history of problems with anesthesia: No Surgical History Surgical History History of appendectomy History of Problems with Anesthesia: No Social History Social History Housing: House Alcohol intake: never Patient Tobacco Use Status: Never used Tobacco e-Cigarette/Vaping Use: Never Used Are you DNR?: No Advance Directives: No Advance Directives Information Provided: Yes Nutrition Risks: No Nutritional Risk service: No Current occupational status: employed Meds Allergies Allergy/AdvReac Type Severity Reaction Status Date / Time No Known Allergies Allergy Verified 12/07/22 15:02 Exam Exam Date and Time: December 22, 2022 1045 Height,Weight and Vital Signs: Height 5 ft 8 in Weight 84.822 kg Vital Signs Temperature 98 F 12/22/22 09:09 Pulse Rate 77 12/22/22 09:09 Respiratory Rate 18 12/22/22 09:09 Blood Pressure 104/65 12/22/22 09:09 Pulse Oximetry 98 12/22/22 09:09 Oxygen Delivery Method Room Air 12/22/22 09:09 Temperature 98 F 12/22/22 09:09 Pulse Rate 77 12/22/22 09:09 Respiratory Rate 18 12/22/22 09:09 Blood Pressure 104/65 12/22/22 09:09 Pulse Oximetry 98 12/22/22 09:09 Oxygen Delivery Method Room Air 12/22/22 09:09 Airway Mallampati Class: II TM Dist: >3cm Neck ROM: Full Loose/Missing/Broken Teeth: No Heart: S1S2 Lungs: CTAB Assessment and Plan Assessment Anesthesia Assessment: Anesthesia Plan Discussed and Chart Reviewed Final Anesthetic Review Family History of Problems with Anesthesia: No History of Problems with Anesthesia: No NPO: Yes ASA Class: I Final Preanesthetic Review: No Changes in Pt Med Stat, Meds/Allgs Chart Reviewed, Consent Obtained/Reviewed and Anes Risks/Benef Reviewed Patient Risk: Low Procedure Risk: Low Anesthetic Plan Anesthetic Plan: GA and Agree w/ Assess. and Plan Disposition: Standard PACU
--- NOTE | 2022-12-22 11:42 | W.PM.OPN ---
Operative Note Operative Note Date of Service: 12/22/22 Narrative: Preop diagnosis: Left inguinal hernia Postop diagnosis: Left inguinal hernia, indirect Procedure: Repair of a left inguinal hernia with mesh Surgeon: Marquis Jordan MD claims assistant: JOHN Little The patient is a 52-year-old male with a reducible mass on the left groin consistent with a left inguinal hernia. He wanted to proceed with repair. He understood the technique of the planned procedure as well as the risks, benefits, and alternatives. The patient was brought to the operating room. He was placed supine under general anesthesia via laryngeal mask airway. The left groin was prepped and draped in the usual sterile fashion. A surgical time-out was done. The patient received cefazolin 2 g IV preoperatively Infiltrated my planned line of incision with lidocaine 1%. I made a short incision on the skin along an imaginary line from the anterior superior iliac spine to the pubic ramus using blade 15. This carried down with electrocautery through the full-thickness of the skin subcutaneous fat until was able to visualize the external oblique aponeurosis. I bluntly dissected this with gauze to identify and expose the external ring. Once this was achieved, I proceeded to then make a small incision on the external oblique aponeurosis overlying the inguinal canal. I extended this incision to the external ring using an open tip pair of scissors. I applied hemostats on divided edges of the aponeurosis. I did blunt dissection of the underside of the aponeurosis to Madai a pocket for the mesh. I bluntly dissected the Modic cord and its contents me that index finger until was able to pass a Jeddo drain around this. This Lizy drain was used for retraction. I identified the vas deferens and the accompanying vessels and these were protected during the dissection. I proceeded to then carefully identify the which contained omental fat on the anteromedial aspect of the cord. I bluntly dissected this off of the rest of the cord contents until was able to completely reduce this with the internal ring. This was therefore an indirect hernia. I reinforced the ring with a small-sized Prolene plug. The plug was secured with Prolene 2 sutures to shelving edge of the inguinal laterally and the internal oblique superiorly and medially using the inner leaves of the mesh. I then reinforced the entire floor of the canal with a keyhole mesh. The tails of the mesh were passed around the cord at the level of the hernia ring. The mesh was flattened. This was secured to the shelving edge of the inguinal meant laterally, the internal oblique superiorly and medially as well as the ramus inferomedially using Prolene 2 sutures Hemostasis was then observed. Once this was confirmed, proceeded to then irrigate. I closed the external oblique aponeurosis over the mesh with the running Polysorb 2-0 stitch to re-create the external ring. The subcutaneous layer was reapposed with Polysorb 3-0 interrupted sutures. Skin closure was achieved Polysorb 4-0 subcuticular running stitch. The area was infiltrated with Marcaine 0.5% for postop analgesia. Dressings were applied. The procedure was completed The patient tolerated the procedure well. There were no immediate complications. Initial .amd final counts of sponges and instruments were correct. Estimated blood loss was about 5 cc The patient was extubated without difficulty and transferred to the recovery room with stable vital signs.
[2022-12-22] MEDS: oxyCODONE HCl Immed Release 5 MG TABLET 10 MG PO (12:25)
[2022-12-22] MEDS: fentaNYL citrate/PF 100 MCG/2 ML VIAL 50 MCG IVPUSH (12:25)
[2022-12-22] MEDS: Ondansetron ODT 4 MG TAB.RAPDIS TRANSLINGU (14:48)
--- NOTE | 2022-12-22 15:12 | PC.NURSE ---
PT WAS GIVEN ZOFRAN SL PER ORDER IN DC AREA FOR COMPLAINT OF NAUSEA AND LIGHTHEADEDNESS. PATIENT PALE. PATIENT REASSESSED BY DR. MUJICA AND PATIENT TO GO BACK TO PACU FOR AWHILE.
[2022-12-22 15:32] LABS: Glucose, Whole Blood 118 mg/dL (60-115)
--- NOTE | 2022-12-22 15:36 | PM.EVENT ---
Event Note Date of Service: 12/23/22 Event Note: pt complained of nausea and dizziness in the discharge area given Zofran ODT he did not feel ready to go so he was brought back to PACU being given LR at this time main complaint now is that he is dizzy good VS dressings dry abd soft will keep in PACU a little longer Time Spent With Patient Time: Total time managing care of this patient today ____ minutes.
[2022-12-22] MEDS: Lactated Ringers 500 ML 999 ML IV (15:49)
--- NOTE | 2022-12-22 17:16 | PC.NURSE ---
[place] [facility] [place] ondasetron odt administered by d/c r.n. Patient upon arrival to pacu iv placed by team and iv L.R. 500 administered over about an hour as per md. Rainey and md. Jordan...following paient resting comfortably no nausea. upon readiness for d/c appreciated infiltrate of l.r. in left bicep to upper forearm. as disucussed with md. Muñiz and team encouraged patient to elevate arm to level of heart and apply warm compress to arm as fluid will absorb in time, and if discoloration or circulation as discussed and educated to left hand return to e.d.
== END 2022-12-22 17:20 | disposition home or self-care (01) ==
PROVIDERS: PCP Internal Medicine; Visit Provider Surgery
PROC: (CPT 49505; principal; 2022-12-22 10:40)
DX: K40.90 Unilateral inguinal hernia, without obstruction or gangrene, not specified as recurrent (principal); R11.0 Nausea; R42 Dizziness and giddiness
CPT/HCPCS: 49505; 82947; C1781; J0131; J0690; J1100; J1885; J2405; J3010

== ENCOUNTER → 2022-12-22 08:46 | Outpatient (BNV) | payer OTHER, SELFPAY | PROVIDERS: PCP Internal Medicine; Visit Provider Surgery | DX: K40.90 Unilateral inguinal hernia, without obstruction or gangrene, not specified as recurrent (principal) | CPT/HCPCS: 49505; 99499 ==

== ENCOUNTER 2023-01-04 09:53 | Outpatient (AMB) | payer OTHER, SELFPAY ==
--- NOTE | 2023-01-04 09:57 | MHC.OFFVIS ---
Intake Intake Visit Reasons: S/P LIH w/mesh Intake Note: This patient presents for a post-op assessment status post left inguinal hernia repair with mesh. Patient c/o; reports no complaints at this time. 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 He tolerated procedure well. He says that he did have pain postoperatively but this is improving well. [facility] Medical History (Updated 01/04/23 @ 10:11 by Marquis Jordan MD) Inguinal hernia Contact dermatitis Surgical History History of left inguinal hernia repair (~12/22/22) History of appendectomy Family History Mother No problems noted. Social History Housing: House Alcohol intake: never Patient Tobacco Use Status: Never used Tobacco e-Cigarette/Vaping Use: Never Used service: No Current occupational status: employed Review of Systems Const Denies chills and Denies fever(s) Card Denies chest pain, Denies dyspnea and Denies dyspnea on exertion Resp Denies cough, Denies dyspnea and Denies dyspnea on exertion GI Denies hematochezia and Denies change in bowel habits Denies hematuria and Denies difficulty urinating Musc Denies back pain and Denies limited range of motion Neuro Denies focal weakness and Denies convulsions Psych Denies depression and Denies mood swings Physical Exam Const General: comfortable and no acute distress Resp Effort & Inspection: normal respiratory effort GI Other: Left inguinal hernia repair site is well healed, not infected, repair intact Assessment & Plan Assessment & Plan (1) Inguinal hernia: Code(s): K40.90 - Unilateral inguinal hernia, without obstruction or gangrene, not specified as recurrent Plan: Status post repair with mesh. He is doing very well postoperatively. His incision is well healed. He the repair site is intact. I advised him to avoid any lifting more than 20 lb for at least 2 more weeks. He can follow up on a p.r.n. basis. Coding Level of Care Code Global (36550) Diagnoses Inguinal hernia K40.90
== END 2023-01-04 10:05 | disposition home or self-care (01) ==
PROVIDERS: PCP Internal Medicine; Visit Provider Surgery
DX: K40.90 Unilateral inguinal hernia, without obstruction or gangrene, not specified as recurrent (principal)
CPT/HCPCS: 99024

== ENCOUNTER → 2023-01-04 09:53 | Outpatient (BNVA) | payer OTHER, SELFPAY | PROVIDERS: PCP Internal Medicine; Visit Provider Surgery ==

== ENCOUNTER 2023-10-17 14:39 | Emergency (ER) | payer OTHER, SELFPAY ==
--- NOTE | ~2023-10-17 | US_ITS ---
EXAMINATION: US VENOUS ULTRASOUND WITH DOPPLER LOWER EXTREMITY, RIGHT CLINICAL INFORMATION: Right lower extremity pain and swelling COMPARISON: None available. TECHNIQUE: Ultrasound of the deep veins is performed from the hip to the calf with compression sonography and color and pulse Doppler assessment. Spectral analysis with color-flow imaging is performed. FINDINGS: There is normal venous compression and respiratory variation and augmented flow. The visualized common femoral vein, superficial femoral vein, profunda femoral vein, popliteal vein, and the trifurcation region shows no evidence of deep venous thrombosis. There is no significant popliteal fossa cyst. If the patient's symptoms persist, followup ultrasound in 5 days 7 days might be of value to exclude proximal propagation from a non-visualized calf vein. No abnormal findings in the area of pain, posterior calf to ankle US/US venous duplex LE RT IMPRESSION: No DVT demonstrated in the right lower extremity.
[2023-10-17 14:41] VITALS: BP 140/90; PULSE 106; RESP 20; TEMP 37.2; O2SAT 97; BMI 25.1
--- NOTE | 2023-10-17 14:42 | ED.GENADULT ---
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 and felt a sharp pain in the back of his right calf and comes to the ER, it is hard to bear weight there was no other injury except walking quickly and feeling a pop and tear No other injury no other complaint no chest pain no shortness of breath no preceding problem with the right leg Related Data Previous Rx's ?Medication ?Instructions ?Recorded naproxen 500 mg tablet 500 mg PO BID PRN pain #14 tabs 12/04/22 ibuprofen 600 mg tablet 600 mg PO Q6H PRN pain #30 tabs 12/22/22 oxycodone-acetaminophen 5 mg-325 1 tab PO Q4-6H PRN pain #25 tabs 12/22/22 mg tablet (Percocet) Allergies Allergy/AdvReac Type Severity Reaction Status Date / Time No Known Allergies Allergy Verified 10/17/23 14:45 [facility] Past Medical History Source: nursing notes reviewed Medical History (Updated 10/17/23 @ 18:47 by JOHN Polanco) Inguinal hernia Contact dermatitis Surgical History History of left inguinal hernia repair (~12/22/22) History of appendectomy Family History Family History Mother No problems noted. Social History Social History Housing: House Alcohol intake: never Patient Tobacco Use Status: Never used Tobacco e-Cigarette/Vaping Use: Never Used Advance Directives: No Advance Directives Information Provided: Yes Do you have a plan to hurt others: No Plan service: No Current occupational status: employed Physical Exam ED Vital Signs: Vital Signs - 24 hr 10/17/23 14:41 Temperature 98.9 F Pulse Rate 106 H Respiratory Rate 20 Blood Pressure 140/90 H Pulse Oximetry 97 Oxygen Delivery Method Room Air BMI result Body Mass Index 25.1 General appearance comfortable no distress Head is normocephalic atraumatic Neck is supple nontender Respiratory no distress The back full range of motion nontender Extremities full range of motion x4 including the right leg The right leg is tender in the superior aspect of the calf, there is no obvious swelling no ecchymosis, there is pain with weight-bearing, it is neurovascular intact distal with good pulses Course Course Course Narrative: This is a rapid medical exam performed by Marina Shaver NP: Additional HPI, ROS, PE not included below will be deferred to primary provider. Patient is a 52-year-old male presenting to the ED with complaint of right calf pain. 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 States pain radiates up to his buttock. Able to dorsiflex and plantarflex foot, 2+ pulses. Denies fall or other trauma, happened while walking back and forth, pain was sudden onset. Plan: labs, U/S CBC showed hemoglobin 13 and hematocrit 39, which is incidental finding on labs sent today, patient is informed and will follow with his doctor for recheck, no other acute lab abnormalities Ultrasound was negative for clot, patient is history is consistent with a calf muscle tear and he is treated with crutches and an Gerard bandage, will follow with orthopedist or primary care Medical Decision Making Lab Data 10/17/23 15:21 10/17/23 15:21 Labs: Lab Results 10/17/23 Range/Units 15:21 WBC 7.8 (4.8-10.8) X10*3/uL RBC 4.53 L (4.60-5.80) X10*6/uL Hgb 13.8 L (14.0-18.0) g/dl Hct 39.3 L (42.0-52.0) % MCV 86.8 (80.0-98.0) fL MCH 30.5 (27.0-33.0) pg MCHC 35.1 (31.0-36.0) g/dl RDW 12.5 (11.0-16.0) % Plt Count 302 (160-400) X10*3/uL MPV 8.6 L (9.4-12.4) fL Immature Gran % (Auto) 0.3 (0.0-0.4) % Neut % (Auto) 72.3 (45-73) % Lymph % (Auto) 19.3 L (20-40) % [place] % (Auto) 7.3 (2-11) % Eos % (Auto) 0.3 (0-4) % Baso % (Auto) 0.5 (0-2) % Lymph # (Auto) 1.5 (1.2-4.9) X10*3/uL [place] # (Auto) 0.6 (0.1-1.2) X10*3/uL Eos # (Auto) 0.0 (0.0-0.4) X10*3/uL Baso # (Auto) 0.0 (0.0-0.2) X10*3/uL Abs Immat Gran (auto) 0.02 (0.00-0.03) X10*3/uL Absolute Neuts (auto) 5.6 (2.0-8.3) x10*3/uL Absolute Nucleated RBC 0.000 (0.0-0.012) X10*3/uL Nucleated RBC % (auto) 0.0 (0.0-0.2) /100WBC PT 11.6 (11.1-13.3) SEC INR 1.0 (0.9-1.1) Sodium 140 (135-145) mmol/L Potassium 3.8 (3.3-5.1) mmol/L Chloride 107 (96-108) mmol/L Carbon Dioxide 24 (22-29) mmol/L Anion Gap 13 (12-20) BUN 13 (9-16) mg/dL Creatinine 1.20 (0.5-1.4) mg/dL Estim Creat Clear Calc 70.4 Estimated GFR > 60 Random Glucose 85 (60-115) mg/dL Calcium 10.1 (8.4-10.2) mg/dL Total Bilirubin 0.4 (0.0-1.0) mg/dL AST 23 (5-37) U/L ALT 28 (0-40) U/L Alkaline Phosphatase 67 (39-117) U/L Total Protein 8.3 H (6.5-8.0) g/dL Albumin 4.7 (3.5-5.0) g/dL Discharge Plan Discharge Clinical Impression: Muscle tear, Anemia Patient Disposition: Home, Self-Care Additional Instructions: Ultrasound did not show any blood clot Your injury is likely a torn muscle in the calf when you were pacing rapidly This usually gets better on its own within several weeks and people are usually limping without crutches in a couple of days Follow with orthopedist or primary doctor next week for further evaluation and possible referral to physical therapy You can apply ice, Motrin or Tylenol if needed Return any time any worse condition or any concerns An incidental finding showed your hemoglobin and hematocrit were mildly low, this should be rechecked by your doctor in coming weeks at the primary care doctor's office Prescriptions: No Action naproxen 500 mg tablet 500 mg PO BID PRN (Reason: pain) Qty: 14 0RF Rx Instructions: Take with food oxycodone-acetaminophen [Percocet] 5-325 mg tablet 1 tab PO Q4-6H PRN (Reason: pain) Qty: 25 0RF Rx Instructions: Partial Fill upon patient request. ibuprofen 600 mg tablet 600 mg PO Q6H PRN (Reason: pain) Qty: 30 0RF Referrals: Marcellus Edwards MD [Physician] - (Calf muscle tear) Print Language: Upper Sorbian
[2023-10-17 15:27] LABS: MANUAL DIFF FLAG NO
[2023-10-17 15:29] LABS: Basophils Percent Auto 0.5 % (0-2); Eosinophils Percent Auto 0.3 % (0-4); Hematocrit 39.3 % (42.0-52.0); Hemoglobin 13.8 g/dl (14.0-18.0); Imm Gran Abs Auto 0.02 X10*3/uL (0.00-0.03); Imm Gran Pct Auto 0.3 % (0.0-0.4); Lymphocytes Absolute Auto 1.5 X10*3/uL (1.2-4.9); Lymphocytes Percent Auto 19.3 % (20-40); Mean Corpuscular HGB Conc 35.1 g/dl (31.0-36.0); Mean Corpuscular Hemoglobin 30.5 pg (27.0-33.0); Mean Corpuscular Volume 86.8 fL (80.0-98.0); Mean Platelet Volume 8.6 fL (9.4-12.4); Monocytes Absolute Auto 0.6 X10*3/uL (0.1-1.2); Monocytes Percent Auto 7.3 % (2-11); Neutrophils Absolute Auto 5.6 x10*3/uL (2.0-8.3); Neutrophils Percent Auto 72.3 % (45-73); Platelet Count 302 X10*3/uL (160-400); Red Blood Count 4.53 X10*6/uL (4.60-5.80); Red Cell Distribution Width 12.5 % (11.0-16.0); White Blood Count 7.8 X10*3/uL (4.8-10.8)
[2023-10-17 15:37] LABS: Prothrombin Time 11.6 SEC (11.1-13.3)
[2023-10-17 15:46] LABS: Alanine Aminotransferase 28 U/L (0-40); Albumin Level 4.7 g/dL (3.5-5.0); Alkaline Phosphatase 67 U/L (39-117); Anion Gap 13 (12-20); Aspartate Amino Transferase 23 U/L (5-37); Bilirubin Total 0.4 mg/dL (0.0-1.0); Blood Urea Nitrogen 13 mg/dL (9-16); Calcium 10.1 mg/dL (8.4-10.2); Carbon Dioxide 24 mmol/L (22-29); Chloride 107 mmol/L (96-108); Creatinine Clr Calc Pharmacy 70.4; Estimated Glomerular Filt Rate > 60; Glucose Random 85 mg/dL (60-115); Potassium 3.8 mmol/L (3.3-5.1); Sodium 140 mmol/L (135-145); Total Protein 8.3 g/dL (6.5-8.0)
[2023-10-17 19:02] VITALS: BP 140/90; PULSE 106; RESP 20; TEMP 37.2; O2SAT 97
== END 2023-10-17 19:03 | disposition home or self-care (01) ==
PROVIDERS: Registered Nurse Emergency; Emergency Provider Emergency Medicine; PCP Internal Medicine
DX: S86.911A Strain of unspecified muscle(s) and tendon(s) at lower leg level, right leg, initial encounter (principal); R60.0 Localized edema; M79.604 Pain in right leg; X58.XXXA Exposure to other specified factors, initial encounter; Y93.9 Activity, unspecified; Y92.9 Unspecified place or not applicable; Y99.8 Other external cause status
CPT/HCPCS: 36415; 80053; 85025; 85610; 93971; 99282; 99284

== ENCOUNTER 2023-10-19 10:38 | Outpatient (AMB) | payer OTHER, SELFPAY ==
--- NOTE | 2023-10-19 10:49 | MHC.PC.OV ---
Vital Signs 10/19/23 10:50 Height 5 ft 8 in BMI Reason not done Patient refused/unable BP 122/78 Blood Pressure Location Lt brachial Position Sitting Pulse 81 Pulse Source Pulse Oximeter Pulse Oximetry (%) 94 Oxygen Delivery Method Room Air Intake Visit Reasons: ED F/U- [facility] [place] 10/16 Muscle Tear, Anemia Allergies No Known Allergies Allergy (Verified 10/19/23 10:57) Tobacco use date assessed: 07/31/22 Dental Screening Dental Screen Date: 10/19/23 Did you have a dental visit in the last 12 months?: Yes Did you have a dental problem in the last 6 months where you did not have access to dental care?: No Was dental information given to patient?: Patient has dentist HPI ED F/U- [facility] [place] 10/16 Muscle Tear, Anemia HPI Details right calf sprain; doing well with ice and wrap [facility] Medical History (Updated 10/18/23 @ 00:00 by Elton Luther) Inguinal hernia Contact dermatitis Surgical History History of left inguinal hernia repair (~12/22/22) History of appendectomy Family History Mother No problems noted. Social History Housing: House Alcohol intake: never Patient Tobacco Use Status: Never used Tobacco e-Cigarette/Vaping Use: Never Used service: No Current occupational status: employed Cognitive needs: No Hearing needs: No Vision needs: No Questionnaire PHQ-9 Over the last 2 weeks, how often have you been bothered by any of the following problems? 1. Little interest or pleasure in doing things: not at all 2. Feeling down, depressed, or hopeless: not at all 3. Trouble falling or staying asleep, or sleeping too much: not at all 4. Feeling tired or having little energy: not at all 5. Poor appetite or overeating: not at all 6. Feeling bad about yourself - or that you are a failure or have let yourself or your family down: not at all 7. Trouble concentrating on things, such as reading the newspaper or watching television: not at all 8. Moving or speaking so slowly that other people could have noticed. Or the opposite - being so fidgety or restless that you have been moving around a lot more than usual: not at all 9. Thoughts that you would be better off or of hurting yourself in some way: not at all Total score: 0 Depression Screening Interpretation: Negative Depression Screening Done: Yes Source: Developed by Drs. Steven Yin, Olinda Mcnair, Eleazar Lieberman and colleagues, with an educational jayleen from [employer]. Thrive Questionnaire Date Thrive assessed: 10/19/23 I am a: Patient What is your living situation today?: I have a steady place to live Within the past 12 months, did the food you bought not last and you didn't have the money to get more?: Never true Within the past 12 months, did you worry whether your food would run out before you got money to buy more?: Never true THRIVE Score: 0 AUDIT C Alcohol Use Questionnaire (AUDIT-C) 1. How often do you have a drink containing alcohol?: Never Total Score: 0 AIDAN-7 AMB Questionnaire AIDAN-7 Date AIDAN - 7 assessed: 10/19/23 Feeling nervous, anxious, or on edge: 0 = Not at all Not being able to stop or control worryin = Not at all Worrying too much about different things: 0 = Not at all Trouble relaxin = Not at all Being so restless that it is hard to sit still: 0 = Not at all Becoming easily annoyed or irritable: 0 = Not at all Feeling afraid as if something awful might happen: 0 = Not at all Total AIDAN-7 score (0-4 normal; 5-9 mild; 10-14 moderate; 15-21 severe): 0 Source: Developed by Drs. Steven Yin, Olinda Mcnair, Eleazar Lieberman and colleagues, with an educational jayleen from [employer]. Review of Systems Const Denies chills, Denies headache(s) and Denies weight loss ENT Denies headache(s) Card Denies chest pain, Denies syncope, Denies irregular heart rhythm and Denies dyspnea Resp Denies chest congestion, Denies cough and Denies dyspnea GI Denies abdominal pain, Denies change in stool character, Denies nausea and Denies vomiting Musc Denies deformity and Denies joint swelling Neuro Denies syncope and Denies headache(s) Physical exam (Primary Care) Vital Signs: Last Vital Signs Pulse 81 10/19/23 10:50 BP 122/78 10/19/23 10:50 Pulse Ox 94 10/19/23 10:50 Oxygen Delivery Method Room Air 10/19/23 10:50 Tobacco/Smoking Status: Tobacco use Status Tobacco use date assessed 07/31/22 10/19/23 10:50 Patient Tobacco Use Status Never used Tobacco 10/19/23 10:50 e-Cigarette/Vaping Use Never Used 10/19/23 10:50 PHQ-9: PHQ-9 Score PHQ-9: Total score 0 10/19/23 10:58 Depression Screening Interpretation: Negative Thrive Assessment: Date of Thrive Assessment Date Thrive assessed 10/19/23 10/19/23 10:58 Const General: cooperative, comfortable, no acute distress and alert Neck Neck: Yes no lymphadenopathy Thyroid: Thyroid normal Resp Effort & Inspection: normal respiratory effort Auscultation: clear to auscultation bilaterally Percussion: percussion normal Cardio Jugular venous distension: no JVD Palpation: normal PMI Rate: regular rate Rhythm: regular rhythm Heart sounds: S1 normal heart sound present and S2 normal heart sound present GI Inspection: Yes normal to inspection Palpation (GI): No hepatosplenomegaly present Skin General skin exam: no rashes or lesions noted Extrem General: Yes no clubbing, cyanosis or edema Assessment and Plan Assessment & Plan (1) Strain of calf muscle: Code(s): S86.819A - Strain of other muscle(s) and tendon(s) at lower leg level, unspecified leg, initial encounter Plan: cont current rx Coding Level of Care Code Est Pt Level 3 (42104) Diagnoses Strain of calf muscle S86.819A
[2023-10-19 10:50] VITALS: BP 122/78; PULSE 81; O2SAT 94
== END 2023-10-19 11:06 | disposition home or self-care (01) ==
PROVIDERS: PCP Internal Medicine; Visit Provider Internal Medicine
DX: S86.819A Strain of other muscle(s) and tendon(s) at lower leg level, unspecified leg, initial encounter (principal)
CPT/HCPCS: 99213

== ENCOUNTER 2023-10-26 11:59 | Emergency (ER) | payer OTHER, SELFPAY ==
--- NOTE | ~2023-10-26 | US_ITS ---
EXAMINATION: US TRIPLEX LOWER EXTREMITY, RIGHT CLINICAL INFORMATION: Right lower extremity pain COMPARISON: Ultrasound 10/17/2023 TECHNIQUE: Color-flow triplex imaging with spectral analysis and compression Doppler were performed on the right lower extremity. FINDINGS: Respiratory variation, normal compression and augmented flow are noted throughout the right lower extremity. The visualized common femoral vein, superficial femoral vein, profunda femoral vein, popliteal vein and midcalf peroneal and posterior tibial venous segments show no evidence of deep venous thrombosis. There is no Stanley's cyst. US/US venous duplex LE RT IMPRESSION: No evidence of deep venous thrombosis involving the right lower extremity. If the patient's symptoms persist, followup ultrasound in 5 days 7 days might be of value to exclude proximal propagation from a non-visualized calf vein. Electronically signed by: Billy Haq MD 10/26/2023 06:28 PM EDT
--- NOTE | ~2023-10-26 | US_ITS ---
EXAMINATION: US NONINVASIVE ASSESSMENT OF THE RIGHT LOWER EXTREMITY WITH ARTERIAL DUPLEX AND ANKLE BRACHIAL INDICES (ABIS) CLINICAL INFORMATION: Peripheral vascular disease, cold foot with pain COMPARISON: None available. TECHNIQUE: Duplex Doppler techniques with waveform analysis and measurement of velocities in the common femoral, profunda femoris, superficial femoral, popliteal and tibial arteries were performed. FINDINGS: RIGHT LOWER EXTREMITY DUPLEX ULTRASOUND: Common femoral artery: 153 cm/s. Diastolic flow reversal: Triphasic Profunda femoris artery: 61.9 cm/s. Diastolic flow reversal: Triphasic Superficial femoral artery (proximal): 83.1 cm/s. Diastolic flow reversal: Triphasic Superficial femoral artery (mid): 82.6 cm/s. Diastolic flow reversal: Triphasic Superficial femoral artery (distal): 55.5 cm/s. Diastolic flow reversal: Triphasic Popliteal artery: 58.4 cm/s Diastolic flow reversal: Triphasic Posterior tibial artery: 40.1 cm/s Diastolic flow reversal: Triphasic Peroneal artery: 45.2 cm/s Phasicity: Triphasic Anterior tibial artery: 41.7 cm/s Phasicity: Triphasic Dorsalis pedis artery: 52.2 cm/s Phasicity: Biphasic US/US arterial duplex LE RT IMPRESSION: Patent arterial flow throughout the right lower extremity without significant arterial stenosis or occlusion Electronically signed by: Tre Johnson MD 10/26/2023 02:29 PM EDT
[2023-10-26 12:08] VITALS: BP 131/79; PULSE 80; RESP 16; TEMP 37; O2SAT 97; BMI 28.1
--- NOTE | 2023-10-26 12:08 | ED_ITS ---
HPI - General Adult General Chief complaint: Extremity Problem Stated complaint: Right leg pain Time Seen by Provider: 10/26/23 15:44 Source: patient Mode of arrival: ambulatory Limitations: no limitations History of Present Illness ED Provider: Lorena RUTLEDGE HPI narrative: 52-year-old male history of inguinal hernia, anemia presents with pain to right lower extremity from the calf down to his right foot, he was seen here a few days ago and had a negative DVT workup, he reports his calf is very tender it feels like his right lower extremity of cold and it intermittently changes collared to a purple/bluish discoloration comes and goes. States it is worse when he is ambulating. Better at rest. He reports significant discomfort to the point where he is using crutches for pain. He has not yet seen a specialist for this. He is not on blood thinners. Non smoker. Denies any blunt trauma to the area. He is not a diabetic. Denies numbness, tingling, fevers, chills, chest pain, shortness of breath, nausea, vomiting, abdominal pain. Related Data Previous Rx's ?Medication ?Instructions ?Recorded naproxen 500 mg tablet 500 mg PO BID PRN pain #14 tabs 12/04/22 ibuprofen 600 mg tablet 600 mg PO Q6H PRN pain #30 tabs 12/22/22 oxycodone-acetaminophen 5 mg-325 1 tab PO Q4-6H PRN pain #25 tabs 12/22/22 mg tablet (Percocet) ketorolac 10 mg tablet 10 mg PO TID PRN pain 5 days #15 10/26/23 tabs Allergies Allergy/AdvReac Type Severity Reaction Status Date / Time No Known Allergies Allergy Verified 10/26/23 12:09 Review of Systems 2 Review of Systems: Yes all other systems are reviewed and are negative PMFSH Past Medical History Attestation statement: The following information was validated with the patient. Source: old records reviewed and nursing notes reviewed Medical History (Updated 10/26/23 @ 18:11 by JOHN Thrasher) Inguinal hernia Contact dermatitis Surgical History History of left inguinal hernia repair (~12/22/22) History of appendectomy Family History Family History Mother No problems noted. Social History Social History Housing: House Alcohol intake: never Patient Tobacco Use Status: Never used Tobacco e-Cigarette/Vaping Use: Never Used Advance Directives: No Advance Directives Information Provided: No service: No Current occupational status: employed Cognitive needs: No Hearing needs: No Vision needs: No Physical Exam ED Vital Signs: Vital Signs - 24 hr 10/26/23 12:08 10/26/23 16:00 10/26/23 18:45 Temperature 98.6 F 97.5 F 98.0 F Pulse Rate 80 66 89 Respiratory Rate 16 20 16 Blood Pressure 131/79 125/88 122/82 Pulse Oximetry 97 97 99 Oxygen Delivery Method Room Air Room Air Room Air 10/26/23 20:00 Temperature 97.6 F Pulse Rate 60 Respiratory Rate 15 Blood Pressure 133/89 Pulse Oximetry 100 Oxygen Delivery Method Room Air BMI result Body Mass Index 28.1 vss Appearance: Alert.? Oriented X3.? No acute distress.? Head: Normocephalic, atraumatic, no step-offs or deformities Eyes: Pupils equal, round and reactive to light.? ENT: Pharynx normal.? Neck: Normal inspection.? Neck supple.? CVS: Normal heart rate and rhythm.? Pulses normal.? Respiratory: No respiratory distress.? Breath sounds normal.? Abdomen: Soft and nontender.? Skin: Skin warm and dry.? Normal skin color.? Normal skin turgor.? Extremities: No lower extremity edema.? + right-sided calf tenderness, normal left-sided calf.. 5/5 strength to bilateral upper and lower extremities 2+ popliteal, dorsalis pedis, anterior tib and posterior tibialis pulses equal bilateral. Right foot slightly colder than left foot. Back: No midline tenderness, no C-spine tenderness, full range of motion, no CVA tenderness bilaterally Neuro: Oriented X 3.? No motor deficit.? No sensory deficit. CN 2-12 intact Course Course Course Narrative: RME, this is a rapid medical exam performed by Emiliano Pleitez please refer to primary provider for complete H&P- 52-year-old male presents for evaluation of 1 week of right lower leg pain. He reports on and off purplish discoloration. He denies any specific injury, but was diagnosed with a calf strain last week. He had a negative DVT study of the right lower extremity on 10/17/2023. On exam, his right lower extremity is slightly discolored with a light purplish color. The foot is cold to the touch but he has a good 2+ DP pulse. Plan for arterial ultrasound, labs including INR Reevaluation(s) Reevaluation #1: CBC unremarkable. ESR CRP normal. Chemistry unremarkable. Preliminary reason arterial and venous scans negative however will wait for final read. Toradol given for pain. Discussed this case w/ Dr. Hardy who recommends repeat US of RLE. If arterial scan is normal he doesn't feel as though there is a need for CTA of RLE. I explained to him leg intermittently changes color to a purpulish color, feels cold and is painful. Pulses present. Time: 20:49 Reevaluation #2: Sign out to JOHN Perkins pending final read of US venous and arterial Time: 20:49 Reevaluation #3: Ana Perkins PA-C have accepted care of the patient at sign-out pending ultrasound. I have independently reviewed the following tests: Ultrasound back, there is patent arterial flow throughout the right lower extremity without significant arterial stenosis or occlusion. Time: 21:53 Medical Decision Making Medical Decision Making MDM Narrative: 52-year-old male presents with right calf pain and intermittent discoloration to right lower extremity. Physical exam + right-sided calf tenderness, normal left-sided calf.. 5/5 strength to bilateral upper and lower extremities 2+ popliteal, dorsalis pedis, anterior tib and posterior tibialis pulses equal bilateral. . Right foot slightly colder than left foot. History and physical exam concerning for possible venous insufficiency versus venous stasis. Unlikely arterial or venous occlusion. Unlikely acute threat to limb, IGA nephropathy, raynauds. ? intermittent claudication Arterial scan ordered from triage DVT study done a few days ago and normal. Differential Diagnosis Differential Diagnoses: The differential diagnosis associated with the presentation includes History and physical exam concerning for possible venous insufficiency versus venous stasis. Unlikely arterial or venous occlusion. Unlikely acute threat to limb, IGA nephropathy, raynauds.? intermittent claudication Admission/Observation Consideration of admission/observation: Escalation of care including admission/observation considered Consult Healthcare Provider Management of the patient was discussed with: Public Employment Mediator (Vascular Dr. Hardy ) Lab Data MDM Lab Attestation statement: I reviewed the patient's lab results. 10/26/23 13:52 10/26/23 13:52 Labs: Lab Results 10/26/23 Range/Units 13:52 WBC 6.9 (4.8-10.8) X10*3/uL RBC 4.79 (4.60-5.80) X10*6/uL Hgb 14.6 (14.0-18.0) g/dl Hct 42.8 (42.0-52.0) % MCV 89.4 (80.0-98.0) fL MCH 30.5 (27.0-33.0) pg MCHC 34.1 (31.0-36.0) g/dl RDW 12.2 (11.0-16.0) % Plt Count 288 (160-400) X10*3/uL MPV 8.7 L (9.4-12.4) fL Immature Gran % (Auto) 0.1 (0.0-0.4) % Neut % (Auto) 59.4 (45-73) % Lymph % (Auto) 30.8 (20-40) % [place] % (Auto) 6.9 (2-11) % Eos % (Auto) 1.9 (0-4) % Baso % (Auto) 0.9 (0-2) % Lymph # (Auto) 2.1 (1.2-4.9) X10*3/uL [place] # (Auto) 0.5 (0.1-1.2) X10*3/uL Eos # (Auto) 0.1 (0.0-0.4) X10*3/uL Baso # (Auto) 0.1 (0.0-0.2) X10*3/uL Abs Immat Gran (auto) 0.01 (0.00-0.03) X10*3/uL Absolute Neuts (auto) 4.1 (2.0-8.3) x10*3/uL Absolute Nucleated RBC 0.000 (0.0-0.012) X10*3/uL Nucleated RBC % (auto) 0.0 (0.0-0.2) /100WBC ESR 5 (0-15) MM/HR PT 11.2 (11.1-13.3) SEC INR 0.9 (0.9-1.1) Sodium 140 (135-145) mmol/L Potassium 4.4 (3.3-5.1) mmol/L Chloride 105 (96-108) mmol/L Carbon Dioxide 27 (22-29) mmol/L Anion Gap 12 (12-20) BUN 15 (9-16) mg/dL Creatinine 1.09 (0.5-1.4) mg/dL Estim Creat Clear Calc 84.6 Estimated GFR > 60 Random Glucose 88 (60-115) mg/dL Calcium 9.9 (8.4-10.2) mg/dL Total Bilirubin 0.5 (0.0-1.0) mg/dL AST 26 (5-37) U/L ALT 28 (0-40) U/L Alkaline Phosphatase 62 (39-117) U/L C-Reactive Protein < 0.10 (< or = 0.50) mg/dL Total Protein 8.2 H (6.5-8.0) g/dL Albumin 4.4 (3.5-5.0) g/dL Lipase 26 (8-78) U/L Independent Interpretation I performed an independent interpretation of an: Ultrasound Radiology Impression Discussion of test interpretation with radiology: I have reviewed the radiologist's reading. Independent Historian Clinical information obtained from an independent historian. History obtained from or confirmed by: Spouse External Record Review External record reviewed: Inpatient record, Office record, Outpatient record, Prior outpatient labs, Prior outpatient radiology, Primary care record and Outside ED record Critical Care Time Critical Care Time Critical Care Time: Yes Total Critical Care Time: 35 Attestation: I attest to this time spent taking care of the patient, obtaining history, physical, reviewing labs, imaging, speaking to my attending, specialist or hospitalist. Discharge Plan Discharge Clinical Impression: Pain of right calf Patient Disposition: Still a Patient Instructions: Leg Cramps (ED), Leg Pain (ED) Additional Instructions: Take your medications as prescribed. If you were prescribed antibiotics today, it is important that you take your medication to their entirety, do not skip any doses, do not finish them early. Follow-up with your primary care provider this week. Return to the emergency department with new or worsening symptoms. Such as fevers, chills, chest pain, shortness of breath, nausea, vomiting, dizziness, headache, vision changes, lethargy In case of emergency call 911 Please follow-up with vascular Toradol has been sent to your pharmacy, you tolerated this well in the department. Please take this as prescribed do not take this with ibuprofen, or other NSAIDs, do not mix this with alcohol. Side effects of this medication including increased risk for bleeding and possible kidney injury. Prescriptions: New ketorolac 10 mg tablet 10 mg PO TID PRN (Reason: pain) 5 Days Qty: 15 0RF No Action naproxen 500 mg tablet 500 mg PO BID PRN (Reason: pain) Qty: 14 0RF Rx Instructions: Take with food oxycodone-acetaminophen [Percocet] 5-325 mg tablet 1 tab PO Q4-6H PRN (Reason: pain) Qty: 25 0RF Rx Instructions: Partial Fill upon patient request. ibuprofen 600 mg tablet 600 mg PO Q6H PRN (Reason: pain) Qty: 30 0RF Referrals: [facility] [place] Vascular Services [Provider Group] - 1 day Physician,Unknown J [Primary Care Provider] - 2 days Stand Alone Forms: Work/School Release Print Language: Bulgarian
[2023-10-26 13:56] LABS: MANUAL DIFF FLAG NO
[2023-10-26 13:57] LABS: Basophils Absolute Auto 0.1 X10*3/uL (0.0-0.2); Basophils Percent Auto 0.9 % (0-2); Eosinophils Absolute Auto 0.1 X10*3/uL (0.0-0.4); Eosinophils Percent Auto 1.9 % (0-4); Hematocrit 42.8 % (42.0-52.0); Hemoglobin 14.6 g/dl (14.0-18.0); Imm Gran Abs Auto 0.01 X10*3/uL (0.00-0.03); Imm Gran Pct Auto 0.1 % (0.0-0.4); Lymphocytes Absolute Auto 2.1 X10*3/uL (1.2-4.9); Lymphocytes Percent Auto 30.8 % (20-40); Mean Corpuscular HGB Conc 34.1 g/dl (31.0-36.0); Mean Corpuscular Hemoglobin 30.5 pg (27.0-33.0); Mean Corpuscular Volume 89.4 fL (80.0-98.0); Mean Platelet Volume 8.7 fL (9.4-12.4); Monocytes Absolute Auto 0.5 X10*3/uL (0.1-1.2); Monocytes Percent Auto 6.9 % (2-11); Neutrophils Absolute Auto 4.1 x10*3/uL (2.0-8.3); Neutrophils Percent Auto 59.4 % (45-73); Platelet Count 288 X10*3/uL (160-400); Red Blood Count 4.79 X10*6/uL (4.60-5.80); Red Cell Distribution Width 12.2 % (11.0-16.0); White Blood Count 6.9 X10*3/uL (4.8-10.8)
[2023-10-26 14:02] LABS: INTERNATIONAL NORM RATIO 0.9 (0.9-1.1); Prothrombin Time 11.2 SEC (11.1-13.3)
[2023-10-26 14:15] LABS: Alanine Aminotransferase 28 U/L (0-40); Albumin Level 4.4 g/dL (3.5-5.0); Alkaline Phosphatase 62 U/L (39-117); Anion Gap 12 (12-20); Aspartate Amino Transferase 26 U/L (5-37); Bilirubin Total 0.5 mg/dL (0.0-1.0); Blood Urea Nitrogen 15 mg/dL (9-16); Calcium 9.9 mg/dL (8.4-10.2); Carbon Dioxide 27 mmol/L (22-29); Chloride 105 mmol/L (96-108); Creatinine Clr Calc Pharmacy 84.6; Estimated Glomerular Filt Rate > 60; Glucose Random 88 mg/dL (60-115); Lipase 26 U/L (8-78); Potassium 4.4 mmol/L (3.3-5.1); Sodium 140 mmol/L (135-145); Total Protein 8.2 g/dL (6.5-8.0)
[2023-10-26 16:00] VITALS: BP 125/88; PULSE 66; RESP 20; TEMP 36.4; O2SAT 97
[2023-10-26 18:14] LABS: C Reactive Protein < 0.10 mg/dL (< or = 0.50)
[2023-10-26 18:36] LABS: Erythrocyte Sedimentation Rate 5 MM/HR (0-15)
[2023-10-26 18:45] VITALS: BP 122/82; PULSE 89; RESP 16; TEMP 36.7; O2SAT 99
[2023-10-26 20:00] VITALS: BP 133/89; PULSE 60; RESP 15; TEMP 36.4; O2SAT 100
--- NOTE | 2023-10-26 21:44 | PC.NURSE ---
update given to pt, waiting on results of damaris
[2023-10-26 22:19] VITALS: BP 138/92; PULSE 63; RESP 16; TEMP 36.8; O2SAT 100
== END 2023-10-26 22:20 | disposition still patient (30) ==
PROVIDERS: Physician Assistant; Emergency Provider Emergency Medicine
DX: M79.604 Pain in right leg (principal); R60.0 Localized edema; Z79.899 Other long term (current) drug therapy
CPT/HCPCS: 36415; 80053; 83690; 85025; 85610; 85652; 86140; 93926; 93971; 96372; 99283; 99284

== ENCOUNTER 2023-11-05 09:00 | Outpatient (AMB) | payer OTHER, SELFPAY ==
--- NOTE | 2023-11-05 09:05 | MHC.OFFVIS ---
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 Patient reports having pain for 3 weeks. He states that the pain came out of no where he is unsure what was caused it. Currently he is feeling a bit better today but her notices that 3 days ago his calf was cold and he got a ultrasound done. 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 Ultrasound of the right lower extremity was obtained. He was placed in an PHIL wrap and supplied with crutches. The patient returned to the ED on 10/26/23 with a complaint of right calf pain radiating to his right foot and intermittent purplish skin discoloration accompanied by a cold sensation. Ultrasound and duplex scan of the right lower extremity were obtained. He was prescribed ketorolac 10 mg PO TID PRN for pain. ?? ? While in the office today, the patient reports he started having pain three weeks prior and is unsure of the cause. He states he is feeling a bit better today but noticed three days ago his calf was cold. ? ? 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 [facility] Medical History (Updated 11/05/23 @ 09:33 by Yadira Henderson) Inguinal hernia Contact dermatitis Surgical History History of left inguinal hernia repair (~12/22/22) History of appendectomy Family History Mother No problems noted. Social History (Updated 11/05/23 @ 09:10 by Salty Eng) Housing: House Alcohol intake: never Patient Tobacco Use Status: Never used Tobacco e-Cigarette/Vaping Use: Never Used service: No Current occupational status: unemployed Cognitive needs: No Hearing needs: No Vision needs: No Review of Systems Const All systems reviewed & are unremarkable except as noted in HPI and below Physical Exam Const General: cooperative and no acute distress Orientation/consciousness: patient oriented x3 Resp Effort & Inspection: normal respiratory effort and able to speak in complete sentences Cardio Peripheral pulses: Peripheral pulses 2+ throughout Skin General skin exam: no rashes or lesions noted Neuro General: patient oriented x3 Extrem Other: Right lower extremity: Calf is supple. Tenderness to palpation with calf squeeze.?Able to dorsiflex and plantarflex with pain in the calf belly. Negative [place]?s test. Assessment & Plan Assessment & Plan (1) Strain of right gastrocnemius muscle: Code(s): S86.111A - Strain of other muscle(s) and tendon(s) of posterior muscle group at lower leg level, right leg, initial encounter Category: Medical Plan Mr. Roberto is a 53-year-old male, who is Turkmen speaking, presents in the office today, as a new patient, for an evaluation of right lower extremity pain. 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 Ultrasound of the right lower extremity was obtained. He was placed in an PHIL wrap and supplied with crutches. The patient returned to the ED on 10/26/23 with a complaint of right calf pain radiating to his right foot and intermittent purplish skin discoloration accompanied by a cold sensation. Ultrasound and duplex scan of the right lower extremity were obtained. He was prescribed ketorolac 10 mg PO TID PRN for pain. ?? ? While in the office today, the patient reports he started having pain three weeks prior and is unsure of the cause. He states he is feeling a bit better today but noticed three days ago his calf was cold. ? ? 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 ? The patient was placed in the tall walking boot, off the shelf. He may weight bear as tolerated. A referral to physical therapy was made in the office today. Folllow-up will be in six weeks, or sooner if needed. ? ? Ultrasound of the right lower extremity, obtained on 10/26/23, revealed: No evidence of deep venous thrombosis involving the right lower extremity.? ? Duplex scan of the right lower extremity, obtained on 10/26/23 revealed: Patent arterial flow throughout the right lower extremity without significant arterial stenosis or occlusion.? ? Ultrasound of the right lower extremity, obtained on 10/17/23, revealed: No DVT demonstrated in the right lower extremity.? Patient Instructions: Scribed by Yadira Henderson director medical, for Kalee Souza AAMIR on 11/05/2023 at 9:31 am, EST.? Coding Level of Care Code New Pt Level 3 (11625) Complex EM visit Add On G2211 Diagnoses Strain of right gastrocnemius muscle S86.111A
== END 2023-11-05 09:41 | disposition home or self-care (01) ==
PROVIDERS: Visit Provider Physician Assistant
DX: S86.111A Strain of other muscle(s) and tendon(s) of posterior muscle group at lower leg level, right leg, initial encounter (principal)
CPT/HCPCS: 99203; G2211

== ENCOUNTER → 2023-11-05 09:00 | Outpatient (BNVA) | payer OTHER, SELFPAY | PROVIDERS: Visit Provider Physician Assistant | DX: S86.111A Strain of other muscle(s) and tendon(s) of posterior muscle group at lower leg level, right leg, initial encounter (principal); X50.1XXA Overexertion from prolonged static or awkward postures, initial encounter; Y93.89 Activity, other specified; Y92.22 Religious institution as the place of occurrence of the external cause; Y99.8 Other external cause status | CPT/HCPCS: 99202 ==

== ENCOUNTER 2023-12-08 10:00 | Outpatient (RCR) | payer OTHER, SELFPAY ==
--- NOTE | 2023-11-24 15:48 | MHC.PT.EP ---
[facility] [place] Office [place] Office [place] Office [address] Caitlin Aburto [address] [phone] F: [phone] F: [phone] F: [phone] F: [phone] Physical Therapy Plan of Care Date of Evaluation: 11/24/23 Date of Surgery: Diagnosis: Strain in R lower leg Assessment: Pt is a 53 y/o M who is referred to PT for eval and treat of strain of R LE resulting in decreased tolerance or ability for standing, walking and stairs secondary to decreased R ankle ROM and strength, TTP medial gastroc and gait abnormality. Pt is motivated and is deemed an appropriate candidate to receive skilled PT services to address his physical impairments in order to improve his function. Frequency and Duration: The patient will be seen 2x/week for 4 weeks. Short Term Goals: Initiate home exercise program. Pt will report at most 4/10 pain; initial 8/10. Pt will improve ankle DF strength by 1/2 grade; initial 4+/5 painful. Cotton Agent Goals: Pt will be I with home exercise program. Pt will report at most a little bit of difficulty walking 2 blocks; initial quite a bit of difficulty. Pt will report at most a little bit of difficulty going up and down stairs; initial quite a bit of difficulty. Pt will improve LEFI score by at least 9 points. Treatment Plan: Modalities to reduce pain, spasms and effusion. Manual therapy to restore motion and function. Therapeutic exercise to improve strength and flexibility. Neuromuscular re-education for posture and balance. Therapeutic activities to return to functional activities of daily living. Electronically signed by: Dario Garnica PT. Please sign and return to therapist. Thank you for your referral.
--- NOTE | 2023-12-13 12:52 | MHC.PT.DC ---
[facility] [place] Office [place] Office [place] Office [address] Caitlin Aburto 140 [facility] [phone] F: [phone] F: [phone] F: [phone] F: [phone] Physical Therapy Discharge Report Diagnosis: Strain in R lower leg Date of Surgery: Date of Evaluation: 11/24/23 Date of Discharge: 12/13/23 Treatments to Date: 4 Cancellations to Date: No Shows to Date: 2 Discharge Status: Visit Non-compliance Discharge Summary: . Electronically signed by: Dario Garnica PT. Please sign and return to therapist. Thank you for your referral.
== END 2023-12-13 12:55 | disposition home or self-care (01) ==
LOC: HO.PT 10:00
PROVIDERS: PCP Internal Medicine; Visit Provider Physician Assistant
DX: S86.111D Strain of other muscle(s) and tendon(s) of posterior muscle group at lower leg level, right leg, subsequent encounter (principal)
CPT/HCPCS: 97110; 97112; 97116; 97161

== ENCOUNTER 2024-01-25 15:21 | Inpatient (IN) | payer OTHER, SELFPAY ==
--- NOTE | ~2024-01-25 | CT_ITS ---
EXAMINATION: CT ABDOMEN AND PELVIS WITHOUT CONTRAST CLINICAL INFORMATION: Left flank pain. COMPARISON: None available. TECHNIQUE: Multidetector volumetric imaging was performed from the superior aspect of the liver through the pubic symphysis. Sagittal and coronal reformatted images were obtained on the technologist's workstation. This CT examination was performed using dose optimization techniques as appropriate, variously including the following: *Automated exposure control *Adjustment of mA and/or kV according to patient size (this includes techniques or standardized protocols for targeted exams where dose is matched to indication/reason for exam; i.e. extremities or head) *Use of iterative reconstruction technique DLP: 515 mGy-cm FINDINGS: LUNG BASES: The visualized lung bases are unremarkable. LIVER, GALLBLADDER, AND BILIARY TREE: The liver is normal in size, shape, and attenuation. No focal hepatic lesion or biliary ductal dilatation is present. The gallbladder is unremarkable with no evidence of radiopaque gallstones, gallbladder wall thickening, or obvious pericholecystic inflammatory changes. PANCREAS: Unremarkable. SPLEEN: Unremarkable. ADRENAL GLANDS: Unremarkable. KIDNEYS AND URETERS: The kidneys are normal in size, shape, and attenuation. No hydronephrosis, hydroureter, or calculi seen. No perinephric stranding. BLADDER: The urinary bladder is partially distended. It demonstrates circumferential, relatively symmetric mural thickening. The nino of the urinary bladder appear somewhat hazy and irregular. There may be some perivesicular inflammation. There is a 4 mm calculus along the anterior superior margin of the urinary bladder. It is surrounded by soft tissue density material. This may represent a calculus within the urinary bladder diverticulum. GASTROINTESTINAL TRACT: The small and large bowel are normal in caliber. There is no pericolonic inflammatory stranding. The appendix is not definitively identified. However, there are no inflammatory changes within the right lower quadrant to indicate acute appendicitis. ABDOMINAL WALL: No significant hernia is appreciated. LYMPH NODES: No lymphadenopathy. VASCULAR: No abdominal aortic aneurysm. PELVIC VISCERA: The prostate gland and seminal vesicles are normal in appearance. OSSEOUS STRUCTURES: No acute osseous abnormality. CT/CT abdomen pelvis wo IV con IMPRESSION: The urinary bladder is partially distended. It demonstrates circumferential, relatively symmetric mural thickening. The nino of the urinary bladder appear somewhat hazy and irregular. There may be some perivesicular inflammation. Correlation with urinalysis is recommended to exclude infection. There is a 4 mm calculus along the anterior superior margin of the urinary bladder. It is surrounded by soft tissue density material. This may represent a calculus within the urinary bladder diverticulum. Fleischner guidelines were followed. Electronically signed by: Celestino Pickering DO 01/25/2024 08:09 PM EST
[2024-01-25 15:47] VITALS: BP 115/79; PULSE 128; RESP 18; TEMP 38; O2SAT 99; BMI 28.6
--- NOTE | 2024-01-25 15:47 | ED_ITS ---
HPI - General Adult General Chief complaint: Abdominal Pain Stated complaint: Incontinence/Fever/Vomiting Time Seen by Provider: 01/25/24 16:51 Related Data Previous Rx's ?Medication ?Instructions ?Recorded ketorolac 10 mg tablet 10 mg PO TID PRN pain 5 days #15 10/26/23 tabs Allergies Allergy/AdvReac Type Severity Reaction Status Date / Time No Known Allergies Allergy Verified 01/25/24 15:52 PMF Past Medical History Medical History Inguinal hernia Contact dermatitis Surgical History History of left inguinal hernia repair (~12/22/22) History of appendectomy Family History Family History Mother No problems noted. Social History Social History Housing: House Alcohol intake: never Patient Tobacco Use Status: Never used Tobacco Smoked in Last 30 Days: No e-Cigarette/Vaping Use: Never Used Use of substances other than those prescribed or required for medical reasons: No Advance Directives: No Advance Directives Information Provided: Yes Do you have a plan to hurt others: No Plan service: No Current occupational status: unemployed Cognitive needs: No Hearing needs: No Vision needs: No Physical Exam ED Vital Signs: Vital Signs - 24 hr 01/25/24 15:47 01/25/24 16:54 01/25/24 18:30 Temperature 100.4 F 99.3 F 98.4 F Pulse Rate 128 H 119 H 104 H Respiratory Rate 18 21 H 18 Blood Pressure 115/79 122/7 L 117/70 Pulse Oximetry 99 98 Oxygen Delivery Method Room Air Room Air Room Air 01/25/24 19:23 Temperature 99.6 F Pulse Rate 107 H Respiratory Rate 20 Blood Pressure 106/73 Pulse Oximetry 98 Oxygen Delivery Method Room Air BMI result Body Mass Index 28.6 Course Course Course Narrative: This is a Rapid Medical Examination (RME) performed by Darby Self PA-C in triage. Full HPI, ROS, assessment and treatment plan per primary provider in the Main ED. 53 yo male with history of UTI/pyelonephritis who presents to the ER for evaluation of fever 101 today along with 3 days of left lower abdominal pain, left sided flank pain, dysuria, and frequency. also reports nausea and bilious vomiting. tachycardic in triage, w/ temp 100.4 appears uncomfortable. +CVA tenderness on the left. left lower abdominal tenderness. Plan: labs, UA, CT scan Medications Administered Discontinued Medications Generic Name Dose Route Start Last Admin Trade Name Savageq PRN Reason Stop Dose Admin Acetaminophen 975 mg 01/25/24 17:10 01/25/24 17:20 Acetaminophen 325 Mg Tablet PO 01/25/24 17:11 975 mg ONCE ONE Administration Ceftriaxone Sodium 1 gm 01/25/24 16:53 01/25/24 17:20 Ceftriaxone Sodium 1 Gm Vial IVPUSH 01/25/24 16:54 1 gm ONCE ONE Administration Sodium Chloride 2,559 mls @ 2,559 mls/hr 01/25/24 16:52 01/25/24 19:23 Ns 30 ml/kg infuse over 1 hr (2559 ml) 01/25/24 17:51 Infused IV Infusion .Q1H STA Medical Decision Making Lab Data 01/25/24 16:10 01/25/24 16:10 Labs: Lab Results 01/25/24 01/25/24 01/25/24 Range/Units 16:10 17:01 18:47 WBC 19.8 H (4.8-10.8) X10*3/uL RBC 4.84 (4.60-5.80) X10*6/uL Hgb 14.7 (14.0-18.0) g/dl Hct 41.7 L (42.0-52.0) % MCV 86.2 (80.0-98.0) fL MCH 30.4 (27.0-33.0) pg MCHC 35.3 (31.0-36.0) g/dl RDW 12.5 (11.0-16.0) % Plt Count 285 (160-400) X10*3/uL MPV 8.5 L (9.4-12.4) fL Immature Gran % (Auto) 1.0 H (0.0-0.4) % Neut % (Auto) 88.3 H (45-73) % Lymph % (Auto) 4.2 L (20-40) % [place] % (Auto) 6.1 (2-11) % Eos % (Auto) 0.0 (0-4) % Baso % (Auto) 0.4 (0-2) % Lymph # (Auto) 0.8 L (1.2-4.9) X10*3/uL [place] # (Auto) 1.2 (0.1-1.2) X10*3/uL Eos # (Auto) 0.0 (0.0-0.4) X10*3/uL Baso # (Auto) 0.1 (0.0-0.2) X10*3/uL Abs Immat Gran (auto) 0.20 H (0.00-0.03) X10*3/uL Absolute Neuts (auto) 17.5 H (2.0-8.3) x10*3/uL Absolute Nucleated RBC 0.000 (0.0-0.012) X10*3/uL Nucleated RBC % (auto) 0.0 (0.0-0.2) /100WBC Sodium 137 (135-145) mmol/L Potassium 3.4 D (3.3-5.1) mmol/L Chloride 102 (96-108) mmol/L Carbon Dioxide 22 (22-29) mmol/L Anion Gap 16 (12-20) BUN 14 (9-16) mg/dL Creatinine 1.29 (0.5-1.4) mg/dL Estim Creat Clear Calc 71.2 Estimated GFR 58 Random Glucose 103 (60-115) mg/dL Lactic Acid 2.8 H* (0.5-2.0) mmol/L Lactic Acid F/U @ 2Hr 2.2 H* (0.5-2.0) mmol/L Calcium 10.0 (8.4-10.2) mg/dL Magnesium 1.7 (1.6-2.6) mg/dL Total Bilirubin 1.0 (0.0-1.0) mg/dL Direct Bilirubin 0.3 (0.0-0.5) mg/dL AST 38 H (5-37) U/L ALT 51 H (0-40) U/L Alkaline Phosphatase 71 (39-117) U/L Total Protein 8.2 H (6.5-8.0) g/dL Albumin 4.5 (3.5-5.0) g/dL Urine Color Yellow Urine Appearance Cloudy Urine pH 6.5 (5.0-9.0) Ur Specific [place] 1.020 (1.005-1.025) Urine Protein 30 (1+) H (Neg-Trace) mg/dL Urine Glucose (UA) Negative (Negative) mg/dL Urine Ketones Trace (Negative) mg/dL Urine Blood Moderate (2+) H (Negative) Urine Nitrite Negative (Negative) Ur Leukocyte Esterase Large (3+) H (Negative) Urine RBC >20 H (0-2) /HPF Urine WBC >50 H (0-5) /HPF Ur Squamous Epith Cells 0-2 (0-2) /HPF Urine Bacteria Trace (None Seen) Hyaline Casts 0-2 (0-2) /LPF Influenza Type A (PCR) NEGATIVE (Negative) Influenza Type B (PCR) NEGATIVE (Negative) RSV RNA Qual (PCR) NEGATIVE (Negative) SARS-CoV-2 RNA (RT-PCR) NEGATIVE (Negative) Discharge Plan Discharge Clinical Impression: Acute pyelonephritis Patient Disposition: Admitted As Inpatient Print Language: Palauan
[2024-01-25 16:19] LABS: MANUAL DIFF FLAG NO
[2024-01-25 16:20] LABS: Basophils Absolute Auto 0.1 X10*3/uL (0.0-0.2); Basophils Percent Auto 0.4 % (0-2); Hematocrit 41.7 % (42.0-52.0); Hemoglobin 14.7 g/dl (14.0-18.0); Lymphocytes Absolute Auto 0.8 X10*3/uL (1.2-4.9); Lymphocytes Percent Auto 4.2 % (20-40); Mean Corpuscular HGB Conc 35.3 g/dl (31.0-36.0); Mean Corpuscular Hemoglobin 30.4 pg (27.0-33.0); Mean Corpuscular Volume 86.2 fL (80.0-98.0); Mean Platelet Volume 8.5 fL (9.4-12.4); Monocytes Absolute Auto 1.2 X10*3/uL (0.1-1.2); Monocytes Percent Auto 6.1 % (2-11); Neutrophils Absolute Auto 17.5 x10*3/uL (2.0-8.3); Neutrophils Percent Auto 88.3 % (45-73); Platelet Count 285 X10*3/uL (160-400); Red Blood Count 4.84 X10*6/uL (4.60-5.80); Red Cell Distribution Width 12.5 % (11.0-16.0); White Blood Count 19.8 X10*3/uL (4.8-10.8)
[2024-01-25 16:22] LABS: Appearance Urine Cloudy; Color Urine Yellow; Glucose Urine UA Negative (Negative); Leukocyte Esterase Urine Large (3+) (Negative); Nitrite Urine Negative (Negative); PH 6.5 (5.0-9.0); UMIC TRIGGER UACC YES; Urine Blood Moderate (2+) (Negative); Urine Ketones Trace mg/dL (Negative); Urine Protein 30 (1+) mg/dL (Neg-Trace)
[2024-01-25 16:28] LABS: Bacteria Urine Trace (None Seen); Hyaline Casts Urine 0-2 /LPF (0-2); RBC Urine >20 /HPF (0-2); Squamous Epithelial Cell Urine 0-2 /HPF (0-2); UACC Culture Trigger YES; WBC Urine >50 /HPF (0-5)
[2024-01-25 16:42] LABS: Alanine Aminotransferase 51 U/L (0-40); Albumin Level 4.5 g/dL (3.5-5.0); Anion Gap 16 (12-20); Aspartate Amino Transferase 38 U/L (5-37); Bilirubin Direct 0.3 mg/dL (0.0-0.5); Blood Urea Nitrogen 14 mg/dL (9-16); Carbon Dioxide 22 mmol/L (22-29); Chloride 102 mmol/L (96-108); Creatinine Clr Calc Pharmacy 71.2; Estimated Glomerular Filt Rate 58; Glucose Random 103 mg/dL (60-115); Magnesium 1.7 mg/dL (1.6-2.6); Potassium 3.4 mmol/L (3.3-5.1); Sodium 137 mmol/L (135-145); Total Protein 8.2 g/dL (6.5-8.0)
[2024-01-25 16:47] LABS: Lactic Acid 2.8 mmol/L (0.5-2.0)
[2024-01-25 16:54] VITALS: BP 122/7; PULSE 119; RESP 21; TEMP 37.4
[2024-01-25] MEDS: cefTRIAXone sodium 1 GM VIAL IVPUSH (17:20)
[2024-01-25] MEDS: Acetaminophen 325 MG TABLET 975 MG PO (17:20)
[2024-01-25 17:22] LABS: Alkaline Phosphatase 71 U/L (39-117)
[2024-01-25] MEDS: SODIUM CHLORIDE 2559 ML IV (17:22)
--- NOTE | 2024-01-25 17:45 | ED_ITS ---
HPI - Abdominal Pain General Chief Complaint: Abdominal Pain Stated Complaint: Incontinence/Fever/Vomiting Time Seen by Provider: 01/25/24 16:51 History of Present Illness HPI narrative: Patient is 53 years old presented with time pain on the left side. Now has diffuse abdominal pain. Has nausea. Has pain on urination. Has a history of pyelonephritis in the past. Has fever at home. No coughing or congestion positive generalized malaise weakness. Came into the ED for further evaluation. Related Data Previous Rx's ?Medication ?Instructions ?Recorded ketorolac 10 mg tablet 10 mg PO TID PRN pain 5 days #15 10/26/23 tabs Allergies Allergy/AdvReac Type Severity Reaction Status Date / Time No Known Allergies Allergy Verified 01/25/24 15:52 Review of Systems Review of Systems Positive abdominal pain positive nausea Yes all other systems are reviewed and are negative PMFSH Past Medical History Attestation statement: The following information was validated with the patient. Medical History Inguinal hernia Contact dermatitis Surgical History History of left inguinal hernia repair (~12/22/22) History of appendectomy Family History Family History Mother No problems noted. Social History Social History Housing: House Alcohol intake: never Patient Tobacco Use Status: Never used Tobacco Smoked in Last 30 Days: No e-Cigarette/Vaping Use: Never Used Use of substances other than those prescribed or required for medical reasons: No Advance Directives: No Advance Directives Information Provided: Yes Do you have a plan to hurt others: No Plan service: No Current occupational status: unemployed Cognitive needs: No Hearing needs: No Vision needs: No Physical Exam ED Vital Signs: Vital Signs - 24 hr 01/25/24 15:47 01/25/24 16:54 01/25/24 18:30 Temperature 100.4 F 99.3 F 98.4 F Pulse Rate 128 H 119 H 104 H Respiratory Rate 18 21 H 18 Blood Pressure 115/79 122/7 L 117/70 Pulse Oximetry 99 98 Oxygen Delivery Method Room Air Room Air Room Air BMI result Body Mass Index 28.6 Appearance: Alert. Oriented X3. No acute distress. Eyes: Pupils equal, round and reactive to light. ENT: Pharynx normal. Neck: Normal inspection. Neck supple. No lymph nodes noted. No crepitus CVS: Normal heart rate and rhythm. Pulses normal. Normal S1 and S2 Respiratory: No respiratory distress. Breath sounds normal. No Wheezing. No rales Abdomen: Soft and nontender. No rigidity. No distention. good BS x4 Skin: Skin warm and dry. Normal skin color. Normal skin turgor. Extremities: No lower extremity edema. Neurovascular intact to all extremities. No Lacerations. No Rash Neuro: Oriented X 3. No motor deficit. No sensory deficit. Moving all extermities. No slurred speech Medical Decision Making Medical Decision Making [facility] Narrative: Patient is 53 years old with a history of pyelonephritis in the past. Presented today with having increased pain on urination increasing frequency. Positive fever at home. Positive generalized malaise. Positive nausea. Patient's white count significantly elevated. At 20. Patient's lactate elevated. 30 cc/kilos fluid was given. Started on Rocephin for antibiotics. Will monitor carefully. Previous urology note reviewed. Will recheck lactate afterwards. Repeat focal exam for sepsis shows patient's symptom improving. CT scan of the abdomen is still pending. Patient is COVID flu RSV are pending. Bladder scan postvoid showed less than 50 cc no evidence for retention Repeat lactate was elevated. Patient repeat exam showed a soft abdomen. Repeat focal exam improving. Hospitalist made aware. Patient to be admitted. Differential Diagnosis Differential Diagnoses: The differential diagnosis associated with the presentation includes Pyelo, urinary retention, COVID Admission/Observation Consideration of admission/observation: Escalation of care including admission/observation considered Lab Data [facility] Lab Attestation statement: I reviewed the patient's lab results. 01/25/24 16:10 01/25/24 16:10 Labs: Lab Results 01/25/24 01/25/24 Range/Units 16:10 17:01 WBC 19.8 H (4.8-10.8) X10*3/uL RBC 4.84 (4.60-5.80) X10*6/uL Hgb 14.7 (14.0-18.0) g/dl Hct 41.7 L (42.0-52.0) % MCV 86.2 (80.0-98.0) fL MCH 30.4 (27.0-33.0) pg MCHC 35.3 (31.0-36.0) g/dl RDW 12.5 (11.0-16.0) % Plt Count 285 (160-400) X10*3/uL MPV 8.5 L (9.4-12.4) fL Immature Gran % (Auto) 1.0 H (0.0-0.4) % Neut % (Auto) 88.3 H (45-73) % Lymph % (Auto) 4.2 L (20-40) % [place] % (Auto) 6.1 (2-11) % Eos % (Auto) 0.0 (0-4) % Baso % (Auto) 0.4 (0-2) % Lymph # (Auto) 0.8 L (1.2-4.9) X10*3/uL [place] # (Auto) 1.2 (0.1-1.2) X10*3/uL Eos # (Auto) 0.0 (0.0-0.4) X10*3/uL Baso # (Auto) 0.1 (0.0-0.2) X10*3/uL Abs Immat Gran (auto) 0.20 H (0.00-0.03) X10*3/uL Absolute Neuts (auto) 17.5 H (2.0-8.3) x10*3/uL Absolute Nucleated RBC 0.000 (0.0-0.012) X10*3/uL Nucleated RBC % (auto) 0.0 (0.0-0.2) /100WBC Sodium 137 (135-145) mmol/L Potassium 3.4 D (3.3-5.1) mmol/L Chloride 102 (96-108) mmol/L Carbon Dioxide 22 (22-29) mmol/L Anion Gap 16 (12-20) BUN 14 (9-16) mg/dL Creatinine 1.29 (0.5-1.4) mg/dL Estim Creat Clear Calc 71.2 Estimated GFR 58 Random Glucose 103 (60-115) mg/dL Lactic Acid 2.8 H* (0.5-2.0) mmol/L Calcium 10.0 (8.4-10.2) mg/dL Magnesium 1.7 (1.6-2.6) mg/dL Total Bilirubin 1.0 (0.0-1.0) mg/dL Direct Bilirubin 0.3 (0.0-0.5) mg/dL AST 38 H (5-37) U/L ALT 51 H (0-40) U/L Alkaline Phosphatase 71 (39-117) U/L Total Protein 8.2 H (6.5-8.0) g/dL Albumin 4.5 (3.5-5.0) g/dL Urine Color Yellow Urine Appearance Cloudy Urine pH 6.5 (5.0-9.0) Ur Specific [place] 1.020 (1.005-1.025) Urine Protein 30 (1+) H (Neg-Trace) mg/dL Urine Glucose (UA) Negative (Negative) mg/dL Urine Ketones Trace (Negative) mg/dL Urine Blood Moderate (2+) H (Negative) Urine Nitrite Negative (Negative) Ur Leukocyte Esterase Large (3+) H (Negative) Urine RBC >20 H (0-2) /HPF Urine WBC >50 H (0-5) /HPF Ur Squamous Epith Cells 0-2 (0-2) /HPF Urine Bacteria Trace (None Seen) Hyaline Casts 0-2 (0-2) /LPF Influenza Type A (PCR) NEGATIVE (Negative) Influenza Type B (PCR) NEGATIVE (Negative) RSV RNA Qual (PCR) NEGATIVE (Negative) SARS-CoV-2 RNA (RT-PCR) NEGATIVE (Negative) Medications Administered Discontinued Medications Generic Name Dose Route Start Last Admin Trade Name Asher PRN Reason Stop Dose Admin Acetaminophen 975 mg 01/25/24 17:10 01/25/24 17:20 Acetaminophen 325 Mg Tablet PO 01/25/24 17:11 975 mg ONCE ONE Administration Ceftriaxone Sodium 1 gm 01/25/24 16:53 01/25/24 17:20 Ceftriaxone Sodium 1 Gm Vial IVPUSH 01/25/24 16:54 1 gm ONCE ONE Administration Sodium Chloride 2,559 mls @ 2,559 mls/hr 01/25/24 16:52 01/25/24 17:22 Ns 30 ml/kg infuse over 1 hr (2559 ml) 11/19/24 17:51 2,559 mls/hr IV Administration .Q1H STA Critical Care Time Critical Care Time Critical Care Time: Yes Total Critical Care Time: 40 Attestation: I have personally provided 40 minutes of critical care time exclusive of time spent on separately billable procedures. ?Time includes review of lab data, radiology results, discussion with consultants, and monitoring for potential decompensation. ?Interventions were performed as documented above Discharge Plan Discharge Clinical Impression: Acute pyelonephritis Patient Disposition: Admitted As Inpatient Instructions: Kidney Infection (ED) Prescriptions: No Action ketorolac 10 mg tablet 10 mg PO TID PRN (Reason: pain) 5 Days Qty: 15 0RF Print Language: Icelandic
[2024-01-25 18:02] LABS: Influenza A PCR NEGATIVE (Negative); Influenza B PCR NEGATIVE (Negative); Resp Syncy Virus RNA Qual PCR NEGATIVE (Negative); SARS COV2 PCR INHOUSE NEGATIVE (Negative)
--- NOTE | 2024-01-25 18:13 | PC.NURSE ---
Pt able to urinate, voided approx 100 mL, post void bladder scan done and noted to have <40 mL left. NS still infusing
[2024-01-25 18:17] LABS: Reflex Lactate? Lactic Acid Added
[2024-01-25 18:30] VITALS: BP 117/70; PULSE 104; RESP 18; TEMP 36.9; O2SAT 98
[2024-01-25 19:14] LABS: ~Lactic Acid-LAB USE ONLY 2.2 mmol/L (0.5-2.0)
[2024-01-25 19:23] VITALS: BP 106/73; PULSE 107; RESP 20; TEMP 37.6; O2SAT 98
[2024-01-25 19:41] VITALS: BP 111/73; PULSE 100; RESP 19; TEMP 37.9; O2SAT 96
--- NOTE | 2024-01-25 20:11 | PC.NURSE ---
MD Gallo made aware of temp rising, verbal order verified and entered for toradol 15mg ivp.
--- NOTE | 2024-01-25 20:27 | PM.IMHP ---
History of Present Illness Date of Service: 01/25/24 Chief Complaint: Dysuria This is a 53-year-old male with history of acute pyelonephritis with UTI who presents to the emergency department for evaluation of abdominal pain and dysuria. Patient states his symptoms started 1 day prior to presentation. He has been having lower abdominal discomfort which is constant, nonradiating and without any relieving factors. Also has been having increased urinary frequency and dysuria. His last episode of kidney infection was 2 years ago. Admits associated nausea and vomiting with chills. No documented temperature. No chest pain, palpitations, shortness of breath, changes in bowel habits. In the emergency department, patient was found to be septic and urine concerning for UTI. Review of Systems Constitutional: Constitutional: Reports chills Cardiovascular: Cardiovascular: Reports no additional cardiovascular complaints Respiratory: Respiratory: Reports no additional respiratory complaints Gastrointestinal: Gastrointestinal: Reports no additional gastrointestinal complaints Genitourinary: Genitourinary: Reports dysuria and Reports urinary frequency FORMERLY [facility], [facility] Medical History Inguinal hernia Contact dermatitis Family History Mother No problems noted. Surgical History History of left inguinal hernia repair (~12/22/22) History of appendectomy Social History Housing: House Alcohol intake: never Patient Tobacco Use Status: Never used Tobacco Smoked in Last 30 Days: No e-Cigarette/Vaping Use: Never Used Use of substances other than those prescribed or required for medical reasons: No Advance Directives: No Advance Directives Information Provided: Yes Do you have a plan to hurt others: No Plan service: No Current occupational status: unemployed Cognitive needs: No Hearing needs: No Vision needs: No Meds Allergies Allergy/AdvReac Type Severity Reaction Status Date / Time No Known Allergies Allergy Verified 01/25/24 15:52 Physical Exam Vital Signs and Narrative: Vital Signs: Last Vital Signs Temp 100.3 F 01/25/24 19:41 Pulse 100 01/25/24 19:41 Resp 19 01/25/24 19:41 BP 111/73 01/25/24 19:41 Pulse Ox 96 01/25/24 19:41 O2 Del Method Room Air 01/25/24 19:41 BMI result Body Mass Index 28.6 Middle-aged male lying in bed in no distress Neck supple, no JVD Regular rate and rhythm, S1-S2 heard Regular breath sounds bilaterally, no wheezing or crackles appreciated Abdomen soft nontender, no guarding, no rigidity no CVA tenderness Patient is awake, alert and oriented to self, place, time and person ; no focal motor deficit Psych: Normal mood No pedal edema Results Labs 01/25/24 16:10 01/25/24 16:10 Labs: Laboratory Results - last 24 hr 01/25/24 01/25/24 01/25/24 16:10 17:01 18:47 MCV 86.2 MCH 30.4 MCHC 35.3 RDW 12.5 Plt Count 285 MPV 8.5 L Immature Gran % (Auto) 1.0 H Neut % (Auto) 88.3 H Lymph % (Auto) 4.2 L [place] % (Auto) 6.1 Eos % (Auto) 0.0 Baso % (Auto) 0.4 Lymph # (Auto) 0.8 L [place] # (Auto) 1.2 Eos # (Auto) 0.0 Baso # (Auto) 0.1 Abs Immat Gran (auto) 0.20 H Absolute Neuts (auto) 17.5 H Absolute Nucleated RBC 0.000 Nucleated RBC % (auto) 0.0 Anion Gap 16 Estim Creat Clear Calc 71.2 Estimated GFR 58 Random Glucose 103 Lactic Acid 2.8 H* Lactic Acid F/U @ 2Hr 2.2 H* Calcium 10.0 Magnesium 1.7 Total Bilirubin 1.0 Direct Bilirubin 0.3 AST 38 H ALT 51 H Alkaline Phosphatase 71 Total Protein 8.2 H Albumin 4.5 Urine Color Yellow Urine Appearance Cloudy Urine pH 6.5 Ur Specific [place] 1.020 Urine Protein 30 (1+) H Urine Glucose (UA) Negative Urine Ketones Trace Urine Blood Moderate (2+) H Urine Nitrite Negative Ur Leukocyte Esterase Large (3+) H Urine RBC >20 H Urine WBC >50 H Ur Squamous Epith Cells 0-2 Urine Bacteria Trace Hyaline Casts 0-2 Influenza Type A (PCR) NEGATIVE Influenza Type B (PCR) NEGATIVE RSV RNA Qual (PCR) NEGATIVE SARS-CoV-2 RNA (RT-PCR) NEGATIVE Imaging Radiologist's Impressions: Impressions Abdomen/Pelvis CT 01/25/24 15:47 IMPRESSION: The urinary bladder is partially distended. It demonstrates circumferential, relatively symmetric mural thickening. The nino of the urinary bladder appear somewhat hazy and irregular. There may be some perivesicular inflammation. Correlation with urinalysis is recommended to exclude infection. There is a 4 mm calculus along the anterior superior margin of the urinary bladder. It is surrounded by soft tissue density material. This may represent a calculus within the urinary bladder diverticulum. Fleischner guidelines were followed. Electronically signed by: Celestino Pickering DO 01/25/2024 08:09 PM [facility] Assessment and Plan (1) Sepsis: Status: Acute (2) UTI (urinary tract infection): Status: Acute Plan This is a 53-year-old male with history of acute pyelonephritis with UTI who presents to the emergency department for evaluation of abdominal pain and dysuria. #. Severe sepsis due to acute UTI: Resuscitated with IV crystalloids. Initiating empiric IV ceftriaxone. Blood culture and urine culture pending. Lactic acid obtained. Imaging with 4 mm calculus within urinary bladder diverticulum. Consulting Urology #. Acute lactic acidosis due to sepsis DVT prophylaxis: Lovenox Full code Admit as inpatient and will require two night minimum hospital stay for IV antibiotics (as above), which is not possible in a lesser acute setting. Quality Stroke Does the patient have a stroke diagnosis?: No VTE Prior VTE?: No VTE Risk Level:: Medical - moderate - high VTE Device Contraindication: Treatment Not Indicated VTE Drug Contraindication: N/A - Med Ordered
--- NOTE | 2024-01-25 20:31 | MHC.EDTECH ---
temperature re-check: 99.0F oral
[2024-01-25] MEDS: Ketorolac Tromethamine 15 MG/ML VIAL IVPUSH (20:36)
[2024-01-25 20:50] LABS: Reflex Lactate? 2 Y
--- NOTE | 2024-01-25 20:51 | PHA.MEDREC ---
Addendum entered by Livier Fonseca RPh 01/25/24 20:57: Reviewed by [facility] Original Note: Pharmacy Consult ? Medication Reconciliation Pharmacy has completed the medication reconciliation. Spoke with chummer Candido and she stated he spoke with the patient in the last hour with the Doctor and the patient confirmed he is not taking any medications (prescription or OTC) at this time.
[2024-01-25] MEDS: Enoxaparin Sodium 40 MG/0.4 ML SYRINGE SUBCUT (20:55)
--- NOTE | 2024-01-25 21:09 | PC.NURSE ---
Assumed care of pt. Pt transferred from wheelchair to stretcher without complications. Family at bedside at this time. Pain evaluated for prior administered medication as charted.
[2024-01-25 21:12] VITALS: BP 125/77; PULSE 80; RESP 18; TEMP 36.4; O2SAT 98
[2024-01-25 22:02] LABS: ~Lactic Acid-LAB USE ONLY 3.1 mmol/L (0.5-2.0)
[2024-01-25 22:05] LABS: Cancel Lactic Acid Canceled
[2024-01-25] MEDS: Lactated Ringers 1,000 ML 999 ML IV (22:08)
[2024-01-26] VITALS (7 sets, daily range): BP systolic 108–129; BP diastolic 63–80; PULSE 68–98; RESP 16–20; TEMP 36.6–37.7; O2SAT 97–99
[2024-01-26] MEDS: 0.9 % Sodium Chloride Flush 3 ML SYRINGE IVFLUSH ×4 (00:10→20:34)
[2024-01-26 05:36] LABS: Basophils Absolute Auto 0.1 X10*3/uL (0.0-0.2); Basophils Percent Auto 0.3 % (0-2); Eosinophils Absolute Auto 0.2 X10*3/uL (0.0-0.4); Eosinophils Percent Auto 0.9 % (0-4); Hematocrit 34.6 % (42.0-52.0); Imm Gran Pct Auto 1.4 % (0.0-0.4); Lymphocytes Absolute Auto 1.6 X10*3/uL (1.2-4.9); Lymphocytes Percent Auto 7.8 % (20-40); Mean Corpuscular HGB Conc 34.7 g/dl (31.0-36.0); Mean Corpuscular Volume 86.5 fL (80.0-98.0); Mean Platelet Volume 8.4 fL (9.4-12.4); Monocytes Absolute Auto 1.6 X10*3/uL (0.1-1.2); Monocytes Percent Auto 7.7 % (2-11); Neutrophils Absolute Auto 17.2 x10*3/uL (2.0-8.3); Neutrophils Percent Auto 81.9 % (45-73); Platelet Count 213 X10*3/uL (160-400); Red Cell Distribution Width 12.8 % (11.0-16.0); SCAN SMEAR FLAG 1
[2024-01-26 05:38] LABS: MANUAL DIFF FLAG SCAN
[2024-01-26 05:56] LABS: Anion Gap 14 (12-20); Blood Urea Nitrogen 16 mg/dL (9-16); Calcium 8.7 mg/dL (8.4-10.2); Carbon Dioxide 21 mmol/L (22-29); Chloride 109 mmol/L (96-108); Creatinine Clr Calc Pharmacy 86.6; Estimated Glomerular Filt Rate > 60; Glucose Random 108 mg/dL (60-115); Potassium 3.5 mmol/L (3.3-5.1); Sodium 140 mmol/L (135-145)
[2024-01-26 06:00] LABS: SLIDE REVIEW VERIFIED
--- NOTE | 2024-01-26 10:56 | HO.PM.IMPN ---
Subjective Subjective Date of Service: 01/26/24 Interval History: dysuria Physical Exam Vital Signs: Vital Signs: Last Vital Signs Temp 98.7 F 01/26/24 08:50 Pulse 94 01/26/24 08:50 Resp 16 01/26/24 08:50 BP 121/80 01/26/24 08:50 Pulse Ox 98 01/26/24 08:50 O2 Del Method Room Air 01/26/24 08:50 BMI result Body Mass Index 28.6 General: AO X 3, no acute distress Resp: CTA bilateral, no accessory muscles used CVS: S1,S2,RRR GI: soft, non tender, non distended Neuro: motor grossly intact, alert Psych: appropriate affect, appropriate insight Objective Data Active Medications Acetaminophen (Acetaminophen 325 Mg Tablet) 650 mg PO Q6H PRN PRN Reason: Pain, Mild (Pain Scale 1-3), fever or headache Calcium Carbonate (Calcium Carbonate 750 Mg Tab.Chew) 750 mg PO Q4H PRN PRN Reason: Heartburn Ceftriaxone Sodium (Ceftriaxone Sodium 1 Gm Vial) 1 gm IVPUSH Q24H [facility] Last Admin: 01/25/24 20:31 Dose: Not Given Documented By: DARRELL Non-Admin Reason: Duplicate Order Enoxaparin Sodium (Enoxaparin Sodium 40 Mg/0.4 Ml Syringe) 40 mg SUBCUT Q24H [facility] Last Admin: 01/25/24 20:55 Dose: 40 mg Documented By: DARRELL Magnesium Hydroxide (Milk Of Magnesia 30 Ml Oral.Susp) 30 ml PO DAILY PRN PRN Reason: Constipation Melatonin (Melatonin 3 Mg Tablet) 6 mg PO BEDTIME PRN PRN Reason: Insomnia Ondansetron HCl (Ondansetron Hcl 4 Mg/2 Ml Vial) 4 mg IVPUSH Q8H PRN PRN Reason: Nausea and Vomiting Sodium Chloride (0.9 % Sodium Chloride Flush 3 Ml Syringe) 3 ml IVFLUSH QSHIFT [facility] Last Admin: 01/26/24 08:09 Dose: 3 ml Documented By: KAE Labs 01/26/24 05:28 01/26/24 05:28 Labs: Laboratory Results - last 24 hr 01/25/24 01/25/24 01/25/24 16:10 17:01 18:47 MCV 86.2 MCH 30.4 MCHC 35.3 RDW 12.5 Plt Count 285 MPV 8.5 L Immature Gran % (Auto) 1.0 H Neut % (Auto) 88.3 H Lymph % (Auto) 4.2 L [place] % (Auto) 6.1 Eos % (Auto) 0.0 Baso % (Auto) 0.4 Lymph # (Auto) 0.8 L [place] # (Auto) 1.2 Eos # (Auto) 0.0 Baso # (Auto) 0.1 Abs Immat Gran (auto) 0.20 H Absolute Neuts (auto) 17.5 H Absolute Nucleated RBC 0.000 Nucleated RBC % (auto) 0.0 Smear Tech's Comments Anion Gap 16 Estim Creat Clear Calc 71.2 Estimated GFR 58 Random Glucose 103 Lactic Acid 2.8 H* Lactic Acid F/U @ 2Hr 2.2 H* Lactic Acid F/U @ 4Hr Calcium 10.0 Magnesium 1.7 Total Bilirubin 1.0 Direct Bilirubin 0.3 AST 38 H ALT 51 H Alkaline Phosphatase 71 Total Protein 8.2 H Albumin 4.5 Urine Color Yellow Urine Appearance Cloudy Urine pH 6.5 Ur Specific [place] 1.020 Urine Protein 30 (1+) H Urine Glucose (UA) Negative Urine Ketones Trace Urine Blood Moderate (2+) H Urine Nitrite Negative Ur Leukocyte Esterase Large (3+) H Urine RBC >20 H Urine WBC >50 H Ur Squamous Epith Cells 0-2 Urine Bacteria Trace Hyaline Casts 0-2 Influenza Type A (PCR) NEGATIVE Influenza Type B (PCR) NEGATIVE RSV RNA Qual (PCR) NEGATIVE SARS-CoV-2 RNA (RT-PCR) NEGATIVE 01/25/24 01/26/24 21:30 05:28 MCV 86.5 MCH 30.0 MCHC 34.7 RDW 12.8 Plt Count 213 D MPV 8.4 L Immature Gran % (Auto) 1.4 H Neut % (Auto) 81.9 H Lymph % (Auto) 7.8 L [place] % (Auto) 7.7 Eos % (Auto) 0.9 Baso % (Auto) 0.3 Lymph # (Auto) 1.6 [place] # (Auto) 1.6 H Eos # (Auto) 0.2 Baso # (Auto) 0.1 Abs Immat Gran (auto) 0.30 H Absolute Neuts (auto) 17.2 H Absolute Nucleated RBC 0.000 Nucleated RBC % (auto) 0.0 Smear Tech's Comments VERIFIED Anion Gap 14 Estim Creat Clear Calc 86.6 Estimated GFR > 60 Random Glucose 108 Lactic Acid Lactic Acid F/U @ 2Hr Lactic Acid F/U @ 4Hr 3.1 H* Calcium 8.7 D Magnesium Total Bilirubin Direct Bilirubin AST ALT Alkaline Phosphatase Total Protein Albumin Urine Color Urine Appearance Urine pH Ur Specific [place] Urine Protein Urine Glucose (UA) Urine Ketones Urine Blood Urine Nitrite Ur Leukocyte Esterase Urine RBC Urine WBC Ur Squamous Epith Cells Urine Bacteria Hyaline Casts Influenza Type A (PCR) Influenza Type B (PCR) RSV RNA Qual (PCR) SARS-CoV-2 RNA (RT-PCR) Assessment and Plan (1) UTI (urinary tract infection): Status: Acute Plan 58M PMH recurrent UTI, presented with dysuria Severe sepsis due to acute recurrent pyelonephritis Continue IV ceftriaxone, follow-up cultures, follow up Urology DVT prophylaxis with Lovenox Full Code reason for continued hospitalization:awaiting cultures Quality Stroke Does the patient have a stroke diagnosis?: No VTE Prior VTE?: No VTE Risk Level:: Medical - moderate - high VTE Device Contraindication: Treatment Not Indicated VTE Drug Contraindication: N/A - Med Ordered
[2024-01-26] MEDS: cefTRIAXone sodium 1 GM VIAL IVPUSH (16:26)
[2024-01-26] MEDS: Enoxaparin Sodium 40 MG/0.4 ML SYRINGE SUBCUT (20:32)
[2024-01-26] MEDS: Phenazopyridine HCL 200 MG TABLET PO (21:08)
[2024-01-26] MEDS: Acetaminophen 325 MG TABLET 650 MG PO (22:37)
[2024-01-27 03:52] VITALS: BP 109/70; PULSE 78; RESP 16; TEMP 36.9; O2SAT 98
[2024-01-27 07:03] LABS: Hematocrit 35.7 % (42.0-52.0); Hemoglobin 12.3 g/dl (14.0-18.0); Mean Corpuscular HGB Conc 34.5 g/dl (31.0-36.0); Mean Corpuscular Hemoglobin 30.2 pg (27.0-33.0); Mean Corpuscular Volume 87.7 fL (80.0-98.0); Platelet Count 230 X10*3/uL (160-400); Red Blood Count 4.07 X10*6/uL (4.60-5.80); Red Cell Distribution Width 12.9 % (11.0-16.0); White Blood Count 17.5 X10*3/uL (4.8-10.8)
[2024-01-27 07:24] VITALS: BP 123/78; PULSE 83; RESP 16; TEMP 37.2; O2SAT 96
[2024-01-27 07:26] LABS: Anion Gap 11 (12-20); Blood Urea Nitrogen 13 mg/dL (9-16); Calcium 9.6 mg/dL (8.4-10.2); Carbon Dioxide 24 mmol/L (22-29); Chloride 107 mmol/L (96-108); Creatinine Clr Calc Pharmacy 91.8; Estimated Glomerular Filt Rate > 60; Glucose Fasting 91 mg/dL (60-99); Potassium 3.6 mmol/L (3.3-5.1); Sodium 138 mmol/L (135-145)
--- NOTE | 2024-01-27 09:41 | HO.PM.IMPN ---
Subjective Subjective Date of Service: 01/27/24 Interval History: dysuria improved Physical Exam Vital Signs: Vital Signs: Last Vital Signs Temp 98.9 F 01/27/24 07:24 Pulse 83 01/27/24 07:24 Resp 16 01/27/24 07:24 BP 123/78 01/27/24 07:24 Pulse Ox 96 01/27/24 07:24 O2 Del Method Room Air 01/27/24 07:24 BMI result Body Mass Index 28.6 General: AO X 3, no acute distress Resp: CTA bilateral, no accessory muscles used CVS: S1,S2,RRR GI: soft, non tender, non distended Neuro: motor grossly intact, alert Psych: appropriate affect, appropriate insight Objective Data Active Medications Acetaminophen (Acetaminophen 325 Mg Tablet) 650 mg PO Q6H PRN PRN Reason: Pain, Mild (Pain Scale 1-3), fever or headache Last Admin: 01/26/24 22:37 Dose: 650 mg Documented By: GEORGIE Calcium Carbonate (Calcium Carbonate 750 Mg Tab.Chew) 750 mg PO Q4H PRN PRN Reason: Heartburn Ceftriaxone Sodium (Ceftriaxone Sodium 1 Gm Vial) 1 gm IVPUSH Q24H [facility] Last Admin: 01/26/24 16:26 Dose: 1 gm Documented By: KAE Enoxaparin Sodium (Enoxaparin Sodium 40 Mg/0.4 Ml Syringe) 40 mg SUBCUT Q24H [facility] Last Admin: 01/26/24 20:32 Dose: 40 mg Documented By: GEORGIE Magnesium Hydroxide (Milk Of Magnesia 30 Ml Oral.Susp) 30 ml PO DAILY PRN PRN Reason: Constipation Melatonin (Melatonin 3 Mg Tablet) 6 mg PO BEDTIME PRN PRN Reason: Insomnia Ondansetron HCl (Ondansetron Hcl 4 Mg/2 Ml Vial) 4 mg IVPUSH Q8H PRN PRN Reason: Nausea and Vomiting Phenazopyridine HCl (Phenazopyridine Hcl 200 Mg Tablet) 200 mg PO TID PRN PRN Reason: Pain, Mild (Pain Scale 1-3) Stop: 01/28/24 20:35 Last Admin: 01/26/24 21:08 Dose: 200 mg Documented By: GEORGIE Sodium Chloride (0.9 % Sodium Chloride Flush 3 Ml Syringe) 3 ml IVFLUSH QSHIFT [facility] Last Admin: 01/26/24 20:34 Dose: 3 ml Documented By: GEORGIE Labs 01/27/24 05:57 01/27/24 05:57 Labs: Laboratory Results - last 24 hr 01/27/24 05:57 MCV 87.7 MCH 30.2 MCHC 34.5 RDW 12.9 Plt Count 230 MPV 9.0 L Absolute Nucleated RBC 0.000 Nucleated RBC % (auto) 0.0 Anion Gap 11 L Estim Creat Clear Calc 91.8 Estimated GFR > 60 Fasting Glucose 91 Calcium 9.6 D Microbiology Microbiology Results: Microbiology 01/25/24 17:01 Blood Culture - Preliminary Blood - Venous No growth after 24 hours. 01/25/24 16:10 Blood Culture - Preliminary Blood - Venous No growth after 24 hours. 01/25/24 16:28 Urine Culture - Preliminary Urine clean catch - Clean Catch Midstream Culture in progress. Assessment and Plan (1) UTI (urinary tract infection): Status: Acute Plan 58M PMH recurrent UTI, presented with dysuria Severe sepsis due to acute recurrent pyelonephritis Continue IV ceftriaxone, follow-up cultures, follow up Urology DVT prophylaxis with Lovenox Full Code reason for continued hospitalization:awaiting cultures Quality Stroke Does the patient have a stroke diagnosis?: No VTE Prior VTE?: No VTE Risk Level:: Medical - moderate - high VTE Device Contraindication: Treatment Not Indicated VTE Drug Contraindication: N/A - Med Ordered
[2024-01-27] MEDS: 0.9 % Sodium Chloride Flush 3 ML SYRINGE IVFLUSH ×3 (10:28→20:30)
[2024-01-27] MEDS: Phenazopyridine HCL 200 MG TABLET PO (10:33)
[2024-01-27] MEDS: Acetaminophen 325 MG TABLET 650 MG PO (10:34)
[2024-01-27 15:16] VITALS: BP 121/75; PULSE 72; RESP 18; TEMP 37.2; O2SAT 97
[2024-01-27] MEDS: cefTRIAXone sodium 1 GM VIAL IVPUSH (16:50)
[2024-01-27 17:17] VITALS: TEMP 37.1
[2024-01-27 19:43] VITALS: BP 132/84; PULSE 95; RESP 18; TEMP 37.4; O2SAT 96
[2024-01-27] MEDS: Enoxaparin Sodium 40 MG/0.4 ML SYRINGE SUBCUT (20:29)
[2024-01-28 03:22] VITALS: BP 121/80; PULSE 88; RESP 18; TEMP 36.3; O2SAT 97
[2024-01-28 07:27] VITALS: BP 125/73; PULSE 84; RESP 18; TEMP 37.4; O2SAT 98
[2024-01-28] MEDS: 0.9 % Sodium Chloride Flush 3 ML SYRINGE IVFLUSH (08:52)
[2024-01-28] MEDS: Acetaminophen 325 MG TABLET 650 MG PO (08:55)
--- NOTE | 2024-01-28 09:32 | PM.DS ---
DS: Providers Provider Date of Service: 01/28/24 Date of admission: 01/25/24 20:26 Date of discharge: 01/28/24 Primary care physician: Chance Valdez MD Consults: 01/25/24 20:49 Consult to Urology Routine Consulting Provider: [facility] Reason for consultation: calculus within urinary bladder diverticulum DS: Diagnosis Discharge Diagnosis (1) UTI (urinary tract infection): Status: Acute DS: Summary Hospital Course Hospital Course: from initial hpi: 53-year-old male with history of acute pyelonephritis with UTI who presents to the emergency department for evaluation of abdominal pain and dysuria. Patient states his symptoms started 1 day prior to presentation. He has been having lower abdominal discomfort which is constant, nonradiating and without any relieving factors. Also has been having increased urinary frequency and dysuria. His last episode of kidney infection was 2 years ago. Admits associated nausea and vomiting with chills. No documented temperature. No chest pain, palpitations, shortness of breath, changes in bowel habits. In the emergency department, patient was found to be septic and urine concerning for UTI. hospital course: Patient was admitted for severe sepsis due to acute recurrent pyelonephritis. Urine culture grew E coli. Was treated with IV ceftriaxone and sepsis resolved. Dysuria resolved. He will be discharged on 4 more days of levofloxacin and will follow up with Urology. Time Attestation Discharge Coordination Time (in mins): 34 Quality: Safe Use of Opioids Does Pt have an Active Cancer Diagnosis on the Problem List?: No Quality: Stroke Does the patient have a stroke diagnosis?: No Physical Exam Vital Signs: Vital Signs: Last Vital Signs Temp 99.4 F 01/28/24 07:27 Pulse 84 01/28/24 07:27 Resp 18 01/28/24 07:27 BP 125/73 01/28/24 07:27 Pulse Ox 98 01/28/24 07:27 O2 Del Method Room Air 01/28/24 07:27 BMI result Body Mass Index 28.6 General: AO X 3, no acute distress Resp: CTA bilateral, no accessory muscles used CVS: S1,S2,RRR GI: soft, non tender, non distended Neuro: motor grossly intact, alert Psych: appropriate affect, appropriate insight DS: Data Data Completed and Pending Labs on day of discharge: Preliminary micro results at discharge 01/25/24 17:01 Blood Culture - Preliminary Blood - Venous No growth after 48 hours. 01/25/24 16:10 Blood Culture - Preliminary Blood - Venous No growth after 48 hours. Discharge Plan Discharge Anticipated Discharge Date/Time: 01/28/24 09:27 Patient Disposition: Home, Self-Care Discharge Diagnosis: sepsis uti Referrals: Maicol Evans MD [Physician] - 1 Week Chance Valdez MD [Primary Care Provider] - 1 Week Discharge Medications: New levofloxacin 500 mg tablet 500 mg PO DAILY Qty: 4 0RF Discharge Orders: Discharge Order (Routine); Ordered 01/28/24 Ordered By: Sean Waller Diet: Advance to usual diet Activity on Discharge: As tolerated Stand Alone Forms: Patient Portal Discharge page Print Language: Macedonian Care Plan Goals: recovery Health Concerns: uti Plan of Treatment: 4 more days levaquin, follow up urology Assessment: see above Patient Instructions: Kidney Infection (ED)
--- NOTE | 2024-01-28 14:43 | MHC.CM.PN ---
PT DCD HOME SELF CARE
== END 2024-01-28 11:12 | disposition home or self-care (01) | DRG 720 ==
LOC: HO.ED 19:27 → HO.EDOVER 20:35 → HO.S3 01-26 07:57
PROVIDERS: Physician Assistant; Admitting Provider Student in an Organized Health Care Education/Training Program; Emergency Provider Emergency Medicine Emergency Medical Services; PCP Internal Medicine; Visit Provider Internal Medicine
DX: A41.9 Sepsis, unspecified organism (principal); N10 Acute pyelonephritis; R65.20 Severe sepsis without septic shock; N21.0 Calculus in bladder; B96.20 Unspecified Escherichia coli [E. coli] as the cause of diseases classified elsewhere; Z20.822 Contact with and (suspected) exposure to COVID-19; Z87.440 Personal history of urinary (tract) infections
CPT/HCPCS: 0241U; 36415; 74176; 80048; 80076; 81001; 83605; 83735; 85025; 85027; 87040; 87086; 87088; 87186; 99285; J0696; J1650; J1885; J7120

== ENCOUNTER → 2024-01-25 20:26 | Outpatient (BNV) | payer OTHER, SELFPAY | PROVIDERS: Admitting Provider Student in an Organized Health Care Education/Training Program; Emergency Provider Emergency Medicine Emergency Medical Services; PCP Internal Medicine; Visit Provider Student in an Organized Health Care Education/Training Program | DX: N39.0 Urinary tract infection, site not specified (principal); R30.0 Dysuria; A41.9 Sepsis, unspecified organism; N10 Acute pyelonephritis | CPT/HCPCS: 99222; 99232; 99239 ==

== ENCOUNTER 2024-02-02 11:04 | Outpatient (AMB) | payer OTHER, SELFPAY ==
--- NOTE | 2024-02-02 11:05 | A.OFFPC_ITS ---
Vital Signs 02/02/24 11:07 Height 5 ft 8 in Weight 186 lb 8 oz BMI 28.4 BP 120/78 Blood Pressure Location Lt brachial Position Sitting Pulse 75 Pulse Source Pulse Oximeter Pulse Oximetry (%) 99 Oxygen Delivery Method Room Air Intake Visit Reasons: [facility] [place] 01/27/23 acute pyelonephritis Intake Note: Patient is here for hospital discharge follow up. Patient was discharged from [facility] on 01/24. Pt decline flu shot today. Zoning Technician Required: No Medical Assistant Internal Medicine: Present Accompanied by: Spouse Allergies No Known Allergies Allergy (Verified 02/02/24 11:07) Medication List - Last Reconciled 02/02/24 by Chance Valdez MD levofloxacin 500 mg PO DAILY Tobacco use date assessed: 02/02/24 Dental Screening Dental Screen Date: 10/19/23 HPI [facility] [place] 01/27/23 acute pyelonephritis HPI Details admitted with pyelonephritis; feeling better on rx; 2nd attack; has urology f/u scheduled [facility] Medical History Inguinal hernia Contact dermatitis Surgical History History of left inguinal hernia repair (~12/22/22) History of appendectomy Family History (Updated 02/02/24 @ 11:05 by LUIS Oliveros) Mother No problems noted. Social History Household Members: Spouse Housing: Apartment Do you presently have visiting nurse or other home services: No Alcohol intake: never Patient Tobacco Use Status: Never used Tobacco e-Cigarette/Vaping Use: Never Used Second Hand Smoke Exposure: No service: No Current occupational status: unemployed Cognitive needs: No Hearing needs: No Vision needs: No Questionnaire Thrive Questionnaire Date Thrive assessed: 10/19/23 AIDAN-7 AMB Questionnaire AIDAN-7 Date AIDAN - 7 assessed: 10/19/23 Source: Developed by Drs. Steven Yin, Olinda Mcnair, Eleazar Lieberman and colleagues, with an educational jayleen from [employer]. Review of Systems Const Denies chills, Denies headache(s) and Denies weight loss ENT Denies headache(s) Card Denies chest pain, Denies syncope, Denies irregular heart rhythm and Denies dyspnea Resp Denies chest congestion, Denies cough and Denies dyspnea GI Denies abdominal pain, Denies change in stool character, Denies nausea and Denies vomiting Musc Denies deformity and Denies joint swelling Neuro Denies syncope and Denies headache(s) Physical exam (Primary Care) Vital Signs: Last Vital Signs Pulse 75 02/02/24 11:07 BP 120/78 02/02/24 11:07 Pulse Ox 99 02/02/24 11:07 Oxygen Delivery Method Room Air 02/02/24 11:07 BMI result Body Mass Index 28.4 Tobacco/Smoking Status: Tobacco use Status Tobacco use date assessed 02/02/24 02/02/24 11:12 Patient Tobacco Use Status Never used Tobacco 02/02/24 11:12 e-Cigarette/Vaping Use Never Used 02/02/24 11:12 Thrive Assessment: Date of Thrive Assessment Date Thrive assessed 10/19/23 02/02/24 11:12 Const General: cooperative, comfortable, no acute distress and alert Neck Neck: Yes no lymphadenopathy Thyroid: Thyroid normal Resp Effort & Inspection: normal respiratory effort Auscultation: clear to auscultation bilaterally Percussion: percussion normal Cardio Jugular venous distension: no JVD Palpation: normal PMI Rate: regular rate Rhythm: regular rhythm Heart sounds: S1 normal heart sound present and S2 normal heart sound present GI Inspection: Yes normal to inspection Palpation (GI): No hepatosplenomegaly present Skin General skin exam: no rashes or lesions noted Extrem General: Yes no clubbing, cyanosis or edema Coding Level of Care Code Est Pt Level 3 (03458) Diagnoses Acute pyelonephritis N10 Assessment & Plan Assessment & Plan (1) Acute pyelonephritis: Code(s): N10 - Acute pyelonephritis Category: Medical Plan: cont current rx and f/u with urology Orders: Orders Urine Culture Today N39.0 - Urinary tract infection, site not specified Medications: Refilled levofloxacin 500 mg PO DAILY 7 tabs 0RF
[2024-02-02 11:07] VITALS: BP 120/78; PULSE 75; O2SAT 99; BMI 28.4
== END 2024-02-02 11:39 | disposition home or self-care (01) ==
PROVIDERS: PCP Internal Medicine; Visit Provider Internal Medicine
DX: N10 Acute pyelonephritis (principal)

== ENCOUNTER 2024-02-02 11:04 | Outpatient (REF) | payer OTHER, SELFPAY | END 2024-02-02 11:05 | disposition home or self-care (01) | LOC: HO.LAB 11:04 | PROVIDERS: PCP Internal Medicine; Visit Provider Internal Medicine | DX: N10 Acute pyelonephritis (principal); N39.0 Urinary tract infection, site not specified | CPT/HCPCS: 87086; 99212 ==

== ENCOUNTER 2024-03-23 12:27 | Outpatient (AMB) | payer OTHER, SELFPAY ==
--- NOTE | 2024-03-23 12:56 | MHC.OFFVIS ---
Intake Visit Reasons: pyelonephrosis/ yearly follow up Intake Note: Patient is Present for Follow Up CT Urology Medication: None Antibiotic Allergies: None Blood Thinners: None Hearing Aid Dispenser Required: No Allergies No Known Allergies Allergy (Verified 03/23/24 13:29) Medication List - Last Reconciled 03/23/24 by MARISABEL Escobar No Known Home Meds HPI Comments Details: Travis is a pleasant 53-year-old Nepali-speaking male patient of Dr. Valdez who was accompanied by his significant other at today's office visit. He presents to the office today for follow-up of his nephrolithiasis as well as pyelonephritis. In discussion with the patient today reports having seeked emergency room care late last year for lower abdominal pain, left-sided flank pain, dysuria, urinary frequency and fever at which time he was diagnosed with pyelonephritis. He reports having completed antibiotic therapy as prescribed by ER physician and has been doing and feeling significantly better. In review of patient's chart it appears CT 01/29 notes the kidneys are normal in size, shape, and attenuation. No hydronephrosis, hydroureter, or calculi seen. No perinephric stranding. There is a 4 mm calculus along the anterior superior margin of the urinary bladder. In office urinalysis results reviewed with the patient today. He denies any UTI like symptoms and or bothersome urinary issues. PSA 09/27 0.5. When asked he denies urinary urgency, urinary frequency, incontinence, nocturia, hematuria, dysuria, foul smelling urine, changes to urinary stream, flank pain, fever, and or chills. He is happy with his current voiding parameters. [facility] Medical History Inguinal hernia Contact dermatitis Surgical History History of left inguinal hernia repair (~12/22/22) History of appendectomy Family History Mother No problems noted. Social History Household Members: Spouse Housing: Apartment Do you presently have visiting nurse or other home services: No Alcohol intake: never Patient Tobacco Use Status: Never used Tobacco e-Cigarette/Vaping Use: Never Used Second Hand Smoke Exposure: No service: No Current occupational status: unemployed Cognitive needs: No Hearing needs: No Vision needs: No Review of Systems Const All systems reviewed & are unremarkable except as noted in HPI and below Reports no additional complaints Eyes Reports no additional complaints ENT Reports no additional complaints Card Reports no additional complaints Resp Reports no additional complaints GI Reports no additional complaints Reports as per HPI Musc Reports no additional complaints Neuro Reports no additional complaints Psych Reports no additional complaints Endo Reports no additional complaints Adolfo/Lymph Reports no additional complaints Aller/Immun Reports no additional complaints Physical Exam Const General: cooperative, healthy appearing, comfortable, no acute distress, well developed, alert and awake Orientation/consciousness: patient oriented x3 Limitations: no limitations HEENT Head: Yes normal to inspection, Yes normocephalic and Yes atraumatic Ears: hearing grossly normal bilaterally Eyes General: appearance normal, both eyes and all related structures Neck Neck: Yes normal visual inspection and Yes trachea midline Chest Chest palpation & inspection: normal inspection of the chest Resp Effort & Inspection: normal respiratory effort and able to speak in complete sentences Cardio Rate: regular rate GI Inspection: Yes normal to inspection General: Yes no CVA tenderness Back/Spine/Pelvis Back: no CVA tenderness Skin General skin exam: no rashes or lesions noted Neuro General: patient oriented x3 Extrem General: Yes normal to inspection Psych Appearance: grossly normal and well kempt Mental Status: mental status grossly normal Speech and movement: Normal speech and movement present and Clear speech present Affect: normal affect Attitude: cooperative Thought process: Normal thought process present Thought content: Normal thought content present Insight: Fair insight present (Psych) Judgement: Fair judgement present (Psych) Results AMB Urinalysis, Automated UA Leukoctes 0 Ceasar/uL Last Edit by LUIS Fox on 03/23/24 13:10 UA Nitrite Negative Last Edit by LUIS Fox on 03/23/24 13:10 UA Urobilinogen 0.2 mg/dL Last Edit by LUIS Fox on 03/23/24 13:10 UA Protein 15 mg/dL Last Edit by LUIS Fox on 03/23/24 13:10 UA pH 5.5 Last Edit by LUIS Fox on 03/23/24 13:10 UA Blood 80 Antony/uL Last Edit by Darshana Hernandez, RMA on 03/23/24 13:10 UA Specific [place] 1.020 Last Edit by Darshana Hernandez, RMA on 03/23/24 13:10 UA Ketone Negative Last Edit by Darshana Hernandez, RMA on 03/23/24 13:10 UA Bilirubin 0 mg/dL Last Edit by Darshana Hernandez, RMA on 03/23/24 13:10 UA Glucose 0 mg/dL Last Edit by Darshana Hernandez, A on 03/23/24 13:10 Results Reviewed Results Reviewed: Laboratory Last Values Urine pH (Auto) 5.5 03/23/24 13:03 Specific [place] (Auto) 1.020 03/23/24 13:03 Urine Protein (Auto) 15 mg/dL 03/23/24 13:03 Glucose (UA)(Auto) 0 mg/dL 03/23/24 13:03 Urine Ketones (Auto) Negative 03/23/24 13:03 Urine Blood (Auto) 80 Antony/uL 03/23/24 13:03 Urine Nitrite (Auto) Negative 03/23/24 13:03 Urine Bilirubin (Auto) 0 mg/dL 03/23/24 13:03 Urine Urobilinogen (Auto) 0.2 mg/dL 03/23/24 13:03 Leukocyte Esterase (Auto) 0 Ceasar/uL 03/23/24 13:03 Assessment & Plan Assessment & Plan (1) History of pyelonephritis: Code(s): Z87.448 - Personal history of other diseases of urinary system Category: Medical Plan In office urinalysis results reviewed the patient today; as noted above. Patient currently denies any bothersome urinary issues or concerns. He reports be happy with current voiding parameters. Previous CT results reviewed with the patient today; as noted above. We discussed at length potential causes of pyelonephritis. Will obtain PSA for further assessment evaluation. Will obtain retroperitoneal ultrasound for further assessment evaluation. Follow-up in 1-3 months with imaging, labs, and PVR; or sooner with any issues, concerns, and or questions. Orders: Orders Urine Cytology 03/23/24 N39.0 - Urinary tract infection, site not specified Prostate Specific Antigen 03/23/24 N40.0 - Benign prostatic hyperplasia without lower urinary tract symptoms AMB Urinalysis Automated 03/23/24 Z13.9 - Encounter for screening, unspecified US retroperitoneal comp 03/23/24 N10 - Acute pyelonephritis, N39.0 - Urinary tract infection, site not specified Patient Instructions: The patient had an opportunity to ask questions regarding the treatment plan. All questions were answered. Physical exam, labs, and imaging were discussed and reviewed in detail. As well as risks, benefits, and discussion of treatment choices. No major barriers to understanding were identified. The patient expressed understanding and agreement with the above treatment plan. The patient was made aware they should contact our office by phone for worsening of their current condition, the appearance of new symptoms, or with any questions or concerns. Compliance is encouraged with any medications and follow up testing that is ordered. It is a privilege to be allowed the opportunity to participate in? your urological care.? Again, if you have any questions or concerns If you have any questions or concerns please do not hesitate to contact me. The office is [phone]. This note is constructed using voice recognition software. While every effort has been made to ensure accuracy shrimp pond laborer errors may have been included. Yours sincerely, MARISABEL Escobar Coding Level of Care Code Est Pt Level 3 (17123) Diagnoses History of pyelonephritis Z87.448
== END 2024-03-23 13:29 | disposition home or self-care (01) ==
PROVIDERS: PCP Internal Medicine; Visit Provider Nurse Practitioner Family
DX: Z13.9 Encounter for screening, unspecified (principal)

== ENCOUNTER 2024-07-13 14:09 | Outpatient (REF) | payer OTHER, SELFPAY ==
--- NOTE | ~2024-07-13 | US_ITS ---
EXAMINATION: US RETROPERITONEUM HISTORY: N39.0 - Urinary tract infection, site not specified TECHNIQUE: Real-time grayscale ultrasound imaging of the kidneys was performed and images were reviewed. COMPARISON: Correlation is made with a renal ultrasound dated 08/12/2022. FINDINGS: Right kidney: The right kidney measures 10.9 x 4.7 x 4.9 cm. Renal parenchymal echotexture and thickness are normal. There are no masses. There is no hydronephrosis or renal calculi. Left Kidney: The left kidney measures 11.7 x 5.4 x 5.0 cm. Renal parenchymal echotexture and thickness are normal. There are no masses. A linear echogenic structure in the midportion of the kidney may represent a calcified vessel. There is no hydronephrosis. The urinary bladder demonstrates mild trabeculation, but is otherwise unremarkable in appearance. Bilateral ureteral jets are identified. Before voiding, the urinary bladder measured 9.4 x 9.4 x 8.8 cm, for an estimated volume of 411 mL. After voiding, the urinary bladder measured 3.9 x 2.2 x 4.2 cm, for an estimated volume of 19 mL. The prostate measures 3.9 x 3.1 x 3.9 cm. US/US retroperitoneal comp IMPRESSION: 1. No definite renal abnormality is identified. 2. Mild trabeculation of the urinary bladder. Post void bladder residual of 19 mL. Electronically signed by: Steven Mata MD 07/13/2024 03:14 PM EDT
== END 2024-07-13 14:10 | disposition home or self-care (01) ==
LOC: HO.US 14:09
PROVIDERS: Visit Provider Nurse Practitioner Family
DX: N39.0 Urinary tract infection, site not specified (principal); N10 Acute pyelonephritis
CPT/HCPCS: 76770

== ENCOUNTER → 2024-07-13 14:11 | Outpatient (BNV) | payer OTHER, SELFPAY | PROVIDERS: Visit Provider Radiology Diagnostic Radiology | DX: N39.0 Urinary tract infection, site not specified (principal) | CPT/HCPCS: 76770 ==